=== PATIENT | female | born 1950 | race Caucasian/White ===

== ENCOUNTER 2019-06-29 14:25 | Outpatient (CLI) | payer MEDICARE, SELFPAY ==
--- NOTE | ~2019-06-29 | MR_ITS ---
EXAMINATION: MR brain/brain stem wo/w con EXAM DATE: 06/29/2019 15:20 INDICATION: Meningioma. TECHNIQUE: Magnetic resonance imaging (MRI) of the brain/brain stem obtained without contrast. Sagit delmar T1, axial diffusion, gradient echo (T2*), T1, T2, FLAIR sequences obtained. Patient was then inj ected with 10 cc intravenous Multihance contrast. Axial and coronal postcontrast T1 weighted sequence s obtained. Comparison is made to prior examination from 07/03/2018. FINDINGS: Punctate left cerebellar old infarction. Mild microangiopathy. There are no areas of restri cted diffusion to suggest acute infarction. There is no acute hemorrhage seen on the T2*, a hemoside rin sensitive sequence. No intraparenchymal brain mass. The ventricles are normal in size. There ar e no extra-axial collections. Flow voids are seen in the cerebral arteries on the T2-weighted sequen tati consistent with their expected patency. The orbits are unremarkable. Soft tissue is unremarkabl e. Again there is a mass along the anterior aspect of the falx measuring 1.3 cm, unchanged and cons istent with meningioma. IMPRESSION: 1. Mass along falx consistent with meningioma unchanged. 2. 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 3. Mild microangiopathy. Reviewed, dictated and finalized at location A. ONHOLE TACKER
== END 2019-06-29 14:26 | disposition home or self-care (01) ==
LOC: CHSIMG 14:28
PROVIDERS: PCP Internal Medicine
DX: D32.9 Benign neoplasm of meninges, unspecified (principal)
CPT/HCPCS: 70553; A9577

== ENCOUNTER 2019-10-21 08:17 | Outpatient (CLI) | payer MEDICARE, SELFPAY ==
[2019-10-21 08:45] LABS: Basophils Absolute Auto 0.04 K/mm3 (0.00-0.10); Basophils Percent Auto 0.7 % (0.0-1.0); Eosinophils Absolute Auto 0.06 K/mm3 (0.02-0.50); Eosinophils Percent Auto 1.1 % (1.0-6.0); Lymphocytes Absolute Auto 2.33 K/mm3 (1.10-4.50); Lymphocytes Percent Auto 42.6 % (18.0-42.0); Mean Corpuscular HGB Conc 32.5 g/dL (32.0-36.0); Mean Corpuscular Volume 98.5 fL (78.0-102.0); Monocytes Absolute Auto 0.45 K/mm3 (0.10-0.90); Monocytes Percent Auto 8.2 % (2.0-11.0); Neutrophils Absolute Auto 2.6 K/mm3 (1.7-7.2); Neutrophils Percent Auto 47.4 % (50.0-70.0); Platelet Count Result 252 K/mm3 (150-420); Red Blood Count 4.06 M/mm3 (4.20-5.40); Red Cell Distribution Width 12.6 % (11.6-14.4); White Blood Count 5.5 K/mm3 (4.8-10.8)
[2019-10-21 08:50] LABS: Add Urine Microscopic? YES; Appearance Urine Clear (Clear); Bilirubin Urine Negative (Negative); Blood Urine Negative (Negative); Color Urine Yellow (Yellow); Glucose Urine UA Negative (Negative); Ketones Urine Negative (Negative); Leukocyte Esterase Ur Trace (Negative); Nitrate Urine Negative (Negative); Protein Urine Negative (Negative); Specific Grav Ur 1.015 (1.010-1.020); Urobilinogen Urine 0.2 mg/dL (0.2-1.0)
[2019-10-21 08:57] LABS: RBC Urine 0-2 /hpf (0-2); Squamous Epithelial Cell Urine Few /hpf (Few)
[2019-10-21 08:58] LABS: Bacteria Urine 1+ /hpf; Mucus Urine Few /lpf
[2019-10-21 09:21] LABS: Alanine Aminotransferase 50 U/L (14-59); Albumin Level 3.8 g/dL (3.4-5.0); Alkaline Phosphatase 65 U/L (46-116); Anion Gap 14.6 mmol/L (7-16); Aspartate Amino Transferase 22 U/L (15-37); Bilirubin,Total 0.4 mg/dL (0.00-1.00); Blood Urea Nitrogen 32 mg/dL (7-18); Calcium 9.2 mg/dL (8.5-10.1); Carbon Dioxide 22 mmol/L (21-32); Chloride 108 mmol/L (98-108); Cholesterol 165 mg/dL (0-200); Estimated Glomerular Filt Rate 45; Glucose 92 mg/dL (70-99); HDL Direct 52 mg/dL (40-60); LDL Cholesterol Calculated 77 mg/dL (<130); Osmolality Calculated 296 mOsm/kg (285-295); Potassium 4.6 mmol/L (3.5-5.1); Sodium 140 mmol/L (136-145); Total Protein 7.3 g/dL (6.4-8.2); Triglycerides 181 mg/dL (0-150)
[2019-10-21 09:29] LABS: Hemoglobin A1C 5.7 % (<5.7)
[2019-10-25 19:08] LABS: Vitamin D 25 Hydroxy 26 ng/mL (30-100)
[2019-10-27 19:12] LABS: Vitamin K1 448 pg/mL (130-1500)
== END 2019-10-21 08:18 | disposition home or self-care (01) ==
PROVIDERS: PCP Internal Medicine; Visit Provider Internal Medicine
DX: E78.2 Mixed hyperlipidemia (principal); I10 Essential (primary) hypertension; N20.0 Calculus of kidney; K50.10 Crohn's disease of large intestine without complications; R73.01 Impaired fasting glucose
CPT/HCPCS: 36415; 80053; 80061; 81001; 82306; 83036; 84597; 85025

== ENCOUNTER 2019-11-04 07:49 | Outpatient (CLI) | payer MEDICARE, SELFPAY ==
--- NOTE | ~2019-11-04 | MM_ITS ---
EXAMINATION: MM screening [facility] HISTORY: Screening mammogram TECHNIQUE: Craniocaudal and mediolateral oblique 3-D tomosynthesis images were obtained and synthetic 2-D images were generated. CAD analysis was submitted and interpreted. COMPARISON: 09/02/2018, 04/27/2017, 04/24/2016 bilateral digital screening mammograms BREAST PARENCHYMAL COMPOSITION: There are scattered areas of fibroglandular density. FINDINGS: There is no evidence of suspicious mass, calcification, or architectural distortion to sugg est malignancy in either breast. There has been no suspicious interval change. IMPRESSION: 1. No mammographic evidence of malignancy. 2. Recommend routine screening mammography in one year. BI-RADS Category 1: Negative Reviewed, dictated and finalized at location A.
== END 2019-11-04 07:50 | disposition home or self-care (01) ==
LOC: CHSIMG 07:51
PROVIDERS: PCP Internal Medicine; Visit Provider Internal Medicine
DX: Z12.31 Encounter for screening mammogram for malignant neoplasm of breast (principal)
CPT/HCPCS: 77063; 77067

== ENCOUNTER 2020-04-12 09:37 | Outpatient (CLI) | payer MEDICARE, SELFPAY | END 2020-04-12 09:38 | disposition home or self-care (01) | LOC: CHSIMG 09:38 | PROVIDERS: PCP Internal Medicine; Visit Provider Internal Medicine | DX: I35.1 Nonrheumatic aortic (valve) insufficiency (principal) | CPT/HCPCS: 93306 ==

== ENCOUNTER 2020-05-02 07:51 | Outpatient (CLI) | payer MEDICARE, SELFPAY ==
[2020-05-02 08:04] LABS: Basophils Absolute Auto 0.04 K/mm3 (0.00-0.10); Basophils Percent Auto 0.7 % (0.0-1.0); Eosinophils Absolute Auto 0.11 K/mm3 (0.02-0.50); Hematocrit 37.4 % (35.0-42.0); Hemoglobin 12.2 g/dL (11.7-13.8); Immature Granulocyte Absolute 0.01 K/mm3 (0.00-0.00); Immature Granulocyte Percent A 0.2 % (0.0-0.0); Lymphocytes Absolute Auto 2.51 K/mm3 (1.10-4.50); Lymphocytes Percent Auto 46.7 % (18.0-42.0); Mean Corpuscular HGB Conc 32.6 g/dL (32.0-36.0); Mean Corpuscular Hemoglobin 32.4 pg (27.0-31.0); Mean Corpuscular Volume 99.2 fL (78.0-102.0); Mean Platelet Volume 9.7 fl (9.2-11.8); Monocytes Percent Auto 7.4 % (2.0-11.0); Neutrophils Absolute Auto 2.3 K/mm3 (1.7-7.2); Platelet Count Result 254 K/mm3 (150-420); Red Blood Count 3.77 M/mm3 (4.20-5.40); Red Cell Distribution Width 12.5 % (11.6-14.4); White Blood Count 5.4 K/mm3 (4.8-10.8)
[2020-05-02 08:06] LABS: Add Urine Microscopic? YES; Appearance Urine Clear (Clear); Bilirubin Urine Negative (Negative); Blood Urine Negative (Negative); Color Urine Yellow (Yellow); Glucose Urine UA Negative (Negative); Ketones Urine Negative (Negative); Leukocyte Esterase Ur 2+ (Negative); Nitrate Urine Negative (Negative); Protein Urine Negative (Negative); Urobilinogen Urine 0.2 mg/dL (0.2-1.0)
[2020-05-02 08:10] LABS: Bacteria Urine Trace /hpf; RBC Urine 0-2 /hpf (0-2); Squamous Epithelial Cell Urine Moderate /hpf (Few)
[2020-05-02 09:13] LABS: Alanine Aminotransferase 36 U/L (14-59); Alkaline Phosphatase 58 U/L (46-116); Anion Gap 7 mmol/L (8-16); Aspartate Amino Transferase 17 U/L (15-37); Bilirubin,Total 0.5 mg/dL (0.00-1.00); Blood Urea Nitrogen 25 mg/dL (7-18); Calcium 9.2 mg/dL (8.5-10.1); Carbon Dioxide 26 mmol/L (21-32); Chloride 106 mmol/L (98-108); Cholesterol 183 mg/dL (0-200); Creatine Kinase 65 U/L (26-192); Estimated Glomerular Filt Rate 50; Glucose 94 mg/dL (70-99); HDL Direct 54 mg/dL (40-60); LDL Cholesterol Calculated 101 mg/dL (<130); Osmolality Calculated 292 mOsm/kg (285-295); Potassium 4.5 mmol/L (3.5-5.1); Sodium 139 mmol/L (136-145); Total Protein 7.6 g/dL (6.4-8.2); Triglycerides 142 mg/dL (0-150)
[2020-05-09 11:56] LABS: Vitamin D 25 Hydroxy 32 ng/mL (30-100)
== END 2020-05-02 07:52 | disposition home or self-care (01) ==
LOC: CHSLAB 07:54
PROVIDERS: PCP Internal Medicine; Visit Provider Internal Medicine
DX: R73.01 Impaired fasting glucose (principal); I10 Essential (primary) hypertension; E78.2 Mixed hyperlipidemia; M81.0 Age-related osteoporosis without current pathological fracture; I35.1 Nonrheumatic aortic (valve) insufficiency
CPT/HCPCS: 36415; 80053; 80061; 81001; 82306; 82550; 85025

== ENCOUNTER 2020-05-18 15:40 | Outpatient (CLI) | payer MEDICARE, SELFPAY ==
[2020-05-18 16:53] LABS: Erythrocyte Sedimentation Rate 25 mm/hr (0-20)
[2020-05-18 17:17] LABS: CRP < 0.5 mg/dL (0.0-0.9); Free T3 2.84 pg/mL (2.18-3.98); Free T4 Free Thyroxine 1.04 ng/dL (0.76-1.46); Thyroid Stimulating Hormone 0.87 uIU/mL (0.36-3.74)
== END 2020-05-18 15:41 | disposition home or self-care (01) ==
LOC: CHSLAB 15:42
PROVIDERS: PCP Internal Medicine; Visit Provider Internal Medicine
DX: R53.83 Other fatigue (principal); R42 Dizziness and giddiness
CPT/HCPCS: 36415; 84439; 84443; 84481; 85652; 86038; 86039; 86140

== ENCOUNTER 2020-05-24 10:22 | Outpatient (CLI) | payer MEDICARE, SELFPAY ==
--- NOTE | 2020-06-18 16:12 | WPDHOLTEREM ---
Holter/Event Monitor Holter/Event Monitor Date of procedure: 05/24/20 Procedure Type: event monitor Indications: Palpitations Conclusion: 1. 24 days event monitor between 05/24/20 to 06/18/20. There are 25 available transmissions for analysis. 2. Underlying rhythm is sinus rhythm. HR range 50-120 bpm; average HR 65 bpm. 3. There are occasional premature supraventricular complexes with total burden of <1%. No supraventricular tachycardia. 4. There are occasional premature ventricular complexes with total burden of <1%. No ventricular tachycardia. 5. No significant pauses greater than 2 seconds. 6. Patient reports 6 episodes of symptoms of dizziness, lightheadedness, and symptoms other than listed which demonstrate sinus rhythm, HR range 64-74 bpm.
== END 2020-05-24 10:23 | disposition home or self-care (01) ==
LOC: CHSCARD 10:24
PROVIDERS: PCP Internal Medicine; Visit Provider Internal Medicine
DX: R00.2 Palpitations (principal); R42 Dizziness and giddiness
CPT/HCPCS: 99199

== ENCOUNTER 2020-06-20 08:14 | Outpatient (CLI) | payer MEDICARE, SELFPAY ==
[2020-06-20 09:07] LABS: Estimated Glomerular Filt Rate 50
== END 2020-06-20 08:15 | disposition home or self-care (01) ==
LOC: CHSLAB 08:17
PROVIDERS: PCP Internal Medicine
DX: D32.9 Benign neoplasm of meninges, unspecified (principal)
CPT/HCPCS: 99199

== ENCOUNTER 2020-06-23 06:40 | Outpatient (CLI) | payer MEDICARE, SELFPAY ==
--- NOTE | ~2020-06-23 | MR_ITS ---
EXAMINATION: MR brain/brain stem wo/w con DATE: 06/23/2020 07:58 INDICATION: Meningioma TECHNIQUE: Magnetic resonance imaging (MRI) of the brain and brainstem was performed without and with 10 mL Multihance intravenous contrast. Sequences included sagittal and axial T1-weighted SE, axial d iffusion-weighted FS SE, axial T2*-weighted GRE, axial T2-weighted FLAIR, and axial T2-weighted FSE. Postcontrast axial and coronal T1-weighted SE was obtained. Apparent diffusion coefficient (ADC) maps were created. COMPARISON: Brain MR dated 06/29/2019 and 07/03/2018 FINDINGS: No interval change in a 14 x 12 x 10 mm enhancing dural based mass along the anterior falx consistent with meningioma. Small old infarct in the left cerebellar hemisphere. There are no areas of restrict ed diffusion to suggest acute infarction. No intracranial hemorrhage or abnormal intra-axial mass les ion. There are scattered areas of nonspecific increased T2-weighted signal intensity in the cerebral white matter, predominantly involving the deep and periventricular white matter. There are no intrapa renchymal signal abnormalities seen on the other pulse sequences. The ventricles are symmetric and no rmal in size. There are no abnormal extra-axial fluid collections. Flow voids are seen in the cerebra l arteries on the T2-weighted sequences consistent with their expected patency. Changes of bilateral intraocular lens replacement. Mild mucosal thickening the bilateral ethmoid sinuses. Visualized orbit s and soft tissues are unremarkable. Aside from the meningioma there are no other abnormally enhancin g lesions. IMPRESSION: 1. Unchanged 1.4 cm meningioma along the anterior falx. 2. 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 3. Mild scattered nonspecific white matter T2 hyperintensity consistent with chronic small vessel isc hemic disease. Reviewed, dictated and finalized at location A. 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 Unchanged 1.4 cm meningioma along the anterior falx. 2. 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 3. Mild scattered nonspecific white matter T2 hyperintensity consistent with ch ronic small vessel ischemic disease.
== END 2020-06-23 06:41 | disposition home or self-care (01) ==
LOC: CHSIMG 06:42
PROVIDERS: PCP Internal Medicine
DX: D32.9 Benign neoplasm of meninges, unspecified (principal)
CPT/HCPCS: 70553; A9577

== ENCOUNTER 2020-11-01 08:31 | Outpatient (CLI) | payer MEDICARE, SELFPAY ==
[2020-11-01 08:41] LABS: Basophils Absolute Auto 0.05 K/mm3 (0.00-0.10); Basophils Percent Auto 0.9 % (0.0-1.0); Eosinophils Absolute Auto 0.13 K/mm3 (0.02-0.50); Eosinophils Percent Auto 2.4 % (1.0-6.0); Hematocrit 37.1 % (35.0-42.0); Hemoglobin 12.2 g/dL (11.7-13.8); Immature Granulocyte Absolute 0.01 K/mm3 (0.00-0.00); Immature Granulocyte Percent A 0.2 % (0.0-0.0); Lymphocytes Absolute Auto 2.69 K/mm3 (1.10-4.50); Lymphocytes Percent Auto 48.6 % (18.0-42.0); Mean Corpuscular HGB Conc 32.9 g/dL (32.0-36.0); Mean Corpuscular Hemoglobin 32.1 pg (27.0-31.0); Mean Corpuscular Volume 97.6 fL (78.0-102.0); Mean Platelet Volume 9.7 fl (9.2-11.8); Monocytes Absolute Auto 0.44 K/mm3 (0.10-0.90); Neutrophils Absolute Auto 2.2 K/mm3 (1.7-7.2); Neutrophils Percent Auto 39.9 % (50.0-70.0); Platelet Count Result 259 K/mm3 (150-420); Red Cell Distribution Width 12.6 % (11.6-14.4); White Blood Count 5.5 K/mm3 (4.8-10.8)
[2020-11-01 08:46] LABS: Add Urine Microscopic? YES; Appearance Urine Clear (Clear); Bilirubin Urine Negative (Negative); Blood Urine Negative (Negative); Color Urine Light Yellow (Yellow); Glucose Urine UA Negative (Negative); Ketones Urine Negative (Negative); Leukocyte Esterase Ur 3+ (Negative); Nitrate Urine Negative (Negative); Protein Urine Negative (Negative); Specific Grav Ur 1.025 (1.010-1.020); Urobilinogen Urine 0.2 mg/dL (0.2-1.0); pH Urine 5.5 (5.0-8.0)
[2020-11-01 08:50] LABS: Bacteria Urine 1+ /hpf; RBC Urine None seen /hpf (0-2); Squamous Epithelial Cell Urine Few /hpf (Few)
[2020-11-01 08:58] LABS: Creatinine Urine 111.65 mg/dL (40-278); MALB Creatinine Ratio 11.6 mg/g (0-30); Microalbumin Urine Random < 13.0 mg/L
[2020-11-01 09:22] LABS: Hemoglobin A1C 5.6 % (<5.7)
[2020-11-01 09:29] LABS: Alanine Aminotransferase 45 U/L (14-59); Albumin Level 3.8 g/dL (3.4-5.0); Alkaline Phosphatase 78 U/L (46-116); Anion Gap 12 mmol/L (8-16); Aspartate Amino Transferase 15 U/L (15-37); Bilirubin,Total 0.7 mg/dL (0.00-1.00); Blood Urea Nitrogen 32 mg/dL (7-18); Calcium 9.5 mg/dL (8.5-10.1); Carbon Dioxide 21 mmol/L (21-32); Chloride 106 mmol/L (98-108); Cholesterol 177 mg/dL (0-200); Estimated Glomerular Filt Rate 41; Free T3 2.68 pg/mL (2.18-3.98); Glucose 94 mg/dL (70-99); HDL Direct 51 mg/dL (40-60); LDL Cholesterol Calculated 87 mg/dL (<130); Osmolality Calculated 294 mOsm/kg (285-295); Potassium 4.7 mmol/L (3.5-5.1); Sodium 139 mmol/L (136-145); Total Protein 7.3 g/dL (6.4-8.2); Triglycerides 196 mg/dL (0-150)
[2020-11-05 02:22] LABS: Vitamin D 25 Hydroxy 26 ng/mL (30-100)
== END 2020-11-01 08:32 | disposition home or self-care (01) ==
LOC: CHSLAB 08:33
PROVIDERS: PCP Internal Medicine; Visit Provider Internal Medicine
DX: E78.2 Mixed hyperlipidemia (principal); I10 Essential (primary) hypertension; R73.01 Impaired fasting glucose; M81.0 Age-related osteoporosis without current pathological fracture; N18.31 Chronic kidney disease, stage 3a; K50.10 Crohn's disease of large intestine without complications
CPT/HCPCS: 36415; 80053; 80061; 81001; 82043; 82306; 83036; 84439; 84443; 84481; 85025

== ENCOUNTER 2020-11-06 08:09 | Outpatient (CLI) | payer MEDICARE, SELFPAY ==
--- NOTE | ~2020-11-06 | MM_ITS ---
EXAMINATION: MM screening [facility] HISTORY: Screening TECHNIQUE: Craniocaudal and mediolateral oblique 3-D tomosynthesis images were obtained and synthetic 2-D images were generated. CAD analysis was submitted and interpreted. COMPARISON: Comparison to multiple prior studies sequentially, with oldest reviewed study dated 05/2013. BREAST PARENCHYMAL COMPOSITION: There are scattered areas of fibroglandular density. FINDINGS: There is no evidence of suspicious mass, calcification, or architectural distortion to sugg est malignancy in either breast. There has been no suspicious interval change. IMPRESSION: 1. No mammographic evidence of malignancy. 2. Recommend routine screening mammography in one year. BI-RADS Category 1: Negative Reviewed, dictated and finalized at location A.
== END 2020-11-06 08:10 | disposition home or self-care (01) ==
LOC: CHSIMG 08:10
PROVIDERS: PCP Internal Medicine; Visit Provider Internal Medicine
DX: Z12.31 Encounter for screening mammogram for malignant neoplasm of breast (principal)
CPT/HCPCS: 77063; 77067

== ENCOUNTER 2020-12-04 08:27 | Outpatient (CLI) | payer MEDICARE, SELFPAY ==
[2020-12-04 09:37] LABS: Anion Gap 13 mmol/L (8-16); Blood Urea Nitrogen 21 mg/dL (7-18); Calcium 9.5 mg/dL (8.5-10.1); Carbon Dioxide 22 mmol/L (21-32); Chloride 109 mmol/L (98-108); Estimated Glomerular Filt Rate 48; Glucose 91 mg/dL (70-99); Osmolality Calculated 301 mOsm/kg (285-295); Sodium 144 mmol/L (136-145)
== END 2020-12-04 08:28 | disposition home or self-care (01) ==
LOC: CHSLAB 08:29
PROVIDERS: PCP Internal Medicine; Visit Provider Internal Medicine
DX: E86.0 Dehydration (principal)
CPT/HCPCS: 36415; 80048

== ENCOUNTER 2020-12-06 10:39 | Outpatient (CLI) | payer MEDICARE, SELFPAY ==
--- NOTE | ~2020-12-06 | DEXA_ITS ---
Bone Density Report Name: Jayla Manrique Age: 70 Sex: Female Ethnicity: White Date of : 1950 Indication: osteopenia; monitoring treatment; hysterectomy; Referring Provider: Ezekiel Begum Study: Bone densitometry was performed. Exam Date: December 06, 2020 Accession number: [id number] Bone Density: Region BMD T-score Z-score Classification AP Spine(L1, L2, L3) 0.830 -1.7 0.3 Osteopenia Femoral Neck (Left) 0.778 -0.6 1.1 Normal Total Hip (Left) 0.827 -0.9 0.5 Normal Femoral Neck (Right) 0.530 -2.9 -1.1 Osteoporosis Total Hip (Right) 0.717 -1.8 -0.4 Osteopenia Femoral Neck Mean 0.654 -1.8 0.0 Osteopenia Total Hip Mean 0.772 -1.4 0.1 Osteopenia World Health Organization criteria for BMD impression classify patients as: Normal (T-score at or above -1.0), Osteopenia (T-score between -1.0 and -2.5), or Osteoporosis (T-score at or below -2.5). 10-year Fracture Risk: FRAX not reported because: Some T-score for Spine Total or Hip Total or Femoral Neck at or below -2.5 Treated for osteoporosis Previous Exams: Region Exam Age BMD T-score BMD Change BMD Change Date g/cm2 vs Baseline vs Previous AP Spine (L1-L3) 12/06/2020 70 0.830 -1.7 -0.086 (-9.3%) 0.029 (3.6%)# 04/24/2016 65 0.801 -2.0 -0.115 (-12.5% -0.045 (-5.4%) 03/17/2014 63 0.846 -1.6 -0.069 (-7.6%) 0.015 (1.8%) 02/25/2010 59 0.831 -1.7 -0.085 (-9.3%) -0.085 (-9.3%) 01/03/2008 57 0.915 -0.9 Total Hip(Left) 12/06/2020 70 0.827 -0.9 -0.026 (-3.1%) 0.054 (7.0%)# 04/24/2016 65 0.773 -1.4 -0.080 (-9.4%) -0.033 (-4.1%) 03/17/2014 63 0.806 -1.1 -0.047 (-5.5%) -0.069 (-7.9%) 02/25/2010 59 0.874 -0.6 0.022 (2.5%) 0.022 (2.5%) 01/03/2008 57 0.853 -0.7 Total Hip(Right) 12/06/2020 70 0.717 -1.8 -0.068 (-8.7%) 0.011 (1.5%)# 03/17/2014 63 0.706 -1.9 -0.079 (-10.1% -0.072 (-9.3%) 02/25/2010 59 0.778 -1.3 -0.007 (-0.9%) -0.007 (-0.9%) 01/03/2008 57 0.785 -1.3 *Denotes significance at 95% confidence level, LSC for AP Spine = 0.022 g/cm2, LSC for Total Hip = 0.027 g/cm2 # Denotes dissimilar scan types or analysis methods Clinical Information Provided by Patient: Is being treated for osteoporosis Has the following medical conditions: Hysterectomy Patient maximum height was 61 Menopause Age: 51 No regular weight bearing exercise Does not regularly consume dairy products Drinks caffeinated beverages Onset of menses at age 13 Number of children 2 --
== END 2020-12-06 10:40 | disposition home or self-care (01) ==
LOC: CHSIMG 10:39
PROVIDERS: PCP Internal Medicine; Visit Provider Internal Medicine
DX: M81.0 Age-related osteoporosis without current pathological fracture (principal)
CPT/HCPCS: 77080

== ENCOUNTER 2021-01-04 08:17 | Outpatient (CLI) | payer MEDICARE, SELFPAY ==
[2021-01-04 10:42] LABS: Anion Gap 12 mmol/L (8-16); Blood Urea Nitrogen 19 mg/dL (7-18); Calcium 9.3 mg/dL (8.5-10.1); Carbon Dioxide 22 mmol/L (21-32); Chloride 109 mmol/L (98-108); Estimated Glomerular Filt Rate 47; Glucose 90 mg/dL (70-99); Osmolality Calculated 298 mOsm/kg (285-295); Potassium 4.8 mmol/L (3.5-5.1); Sodium 143 mmol/L (136-145)
== END 2021-01-04 08:18 | disposition home or self-care (01) ==
LOC: CHSLAB 08:19
PROVIDERS: PCP Internal Medicine; Visit Provider Internal Medicine
DX: R79.89 Other specified abnormal findings of blood chemistry (principal)
CPT/HCPCS: 36415; 80048

== ENCOUNTER 2021-04-10 07:53 | Outpatient (CLI) | payer MEDICARE, SELFPAY ==
[2021-04-10 08:46] LABS: Anion Gap 8 mmol/L (8-16); Blood Urea Nitrogen 21 mg/dL (7-18); Calcium 9.2 mg/dL (8.5-10.1); Carbon Dioxide 25 mmol/L (21-32); Chloride 109 mmol/L (98-108); Estimated Glomerular Filt Rate 50; Glucose 92 mg/dL (70-99); Osmolality Calculated 297 mOsm/kg (285-295); Potassium 4.7 mmol/L (3.5-5.1); Sodium 142 mmol/L (136-145)
== END 2021-04-10 07:54 | disposition home or self-care (01) ==
LOC: CHSLAB 07:55
PROVIDERS: PCP Internal Medicine; Visit Provider Internal Medicine
DX: I10 Essential (primary) hypertension (principal)
CPT/HCPCS: 36415; 80048

== ENCOUNTER 2021-06-06 08:01 | Outpatient (CLI) | payer MEDICARE, SELFPAY ==
[2021-06-06 08:31] LABS: Basophils Absolute Auto 0.04 K/mm3 (0.00-0.10); Basophils Percent Auto 0.7 % (0.0-1.0); Eosinophils Absolute Auto 0.13 K/mm3 (0.02-0.50); Eosinophils Percent Auto 2.2 % (1.0-6.0); Hematocrit 39.6 % (35.0-42.0); Hemoglobin 12.7 g/dL (11.7-13.8); Immature Granulocyte Absolute 0.02 K/mm3 (0.00-0.00); Immature Granulocyte Percent A 0.3 % (0.0-0.0); Lymphocytes Absolute Auto 2.37 K/mm3 (1.10-4.50); Lymphocytes Percent Auto 40.8 % (18.0-42.0); Mean Corpuscular HGB Conc 32.1 g/dL (32.0-36.0); Mean Corpuscular Hemoglobin 32.1 pg (27.0-31.0); Mean Platelet Volume 9.9 fl (9.2-11.8); Monocytes Absolute Auto 0.47 K/mm3 (0.10-0.90); Monocytes Percent Auto 8.1 % (2.0-11.0); Neutrophils Absolute Auto 2.8 K/mm3 (1.7-7.2); Neutrophils Percent Auto 47.9 % (50.0-70.0); Platelet Count Result 254 K/mm3 (150-420); Red Blood Count 3.96 M/mm3 (4.20-5.40); Red Cell Distribution Width 12.5 % (11.6-14.4); White Blood Count 5.8 K/mm3 (4.8-10.8)
[2021-06-06 08:46] LABS: Hemoglobin A1C 5.8 % (<5.7)
[2021-06-06 08:50] LABS: Add Urine Microscopic? YES; Appearance Urine Clear (Clear); Bilirubin Urine Negative (Negative); Blood Urine Negative (Negative); Color Urine Light Yellow (Yellow); Glucose Urine UA Negative (Negative); Ketones Urine Negative (Negative); Leukocyte Esterase Ur Trace (Negative); Nitrate Urine Negative (Negative); Protein Urine Negative (Negative); Specific Grav Ur 1.025 (1.010-1.020); Urobilinogen Urine 0.2 mg/dL (0.2-1.0); pH Urine 5.5 (5.0-8.0)
[2021-06-06 09:16] LABS: Bacteria Urine Trace /hpf; RBC Urine None seen /hpf (0-2); Squamous Epithelial Cell Urine Few /hpf (Few); WBC Urine 0-3 /hpf (0-3)
[2021-06-06 10:08] LABS: Alanine Aminotransferase 35 U/L (14-59); Albumin Level 3.8 g/dL (3.4-5.0); Alkaline Phosphatase 83 U/L (46-116); Anion Gap 7 mmol/L (8-16); Aspartate Amino Transferase 24 U/L (15-37); Bilirubin,Total 0.4 mg/dL (0.00-1.00); Blood Urea Nitrogen 25 mg/dL (7-18); Calcium 9.5 mg/dL (8.5-10.1); Carbon Dioxide 27 mmol/L (21-32); Chloride 105 mmol/L (98-108); Cholesterol 189 mg/dL (0-200); Estimated Glomerular Filt Rate 48; Free T4 Free Thyroxine 0.98 ng/dL (0.76-1.46); Glucose 86 mg/dL (70-99); HDL Direct 60 mg/dL (40-60); LDL Cholesterol Calculated 97 mg/dL (<130); Osmolality Calculated 291 mOsm/kg (285-295); Sodium 139 mmol/L (136-145); Thyroid Stimulating Hormone 1.17 uIU/mL (0.36-3.74); Total Protein 7.4 g/dL (6.4-8.2); Triglycerides 160 mg/dL (0-150); Vitamin B12 392 pg/mL (193-986)
[2021-06-06 10:14] LABS: CRP < 0.2 mg/dL (0.0-0.9)
[2021-06-06 10:52] LABS: Erythrocyte Sedimentation Rate 22 mm/hr (0-20)
[2021-06-10 04:54] LABS: Vitamin D 25 Hydroxy 30 ng/mL (30-100)
[2021-06-10 11:16] LABS: Red Blood Cell Folate 501 ng/mL RBC (>280)
== END 2021-06-06 08:02 | disposition home or self-care (01) ==
LOC: CHSLAB 08:05
PROVIDERS: PCP Internal Medicine; Visit Provider Internal Medicine
DX: K50.10 Crohn's disease of large intestine without complications (principal); I10 Essential (primary) hypertension; M81.0 Age-related osteoporosis without current pathological fracture; R73.01 Impaired fasting glucose; R53.82 Chronic fatigue, unspecified
CPT/HCPCS: 36415; 80053; 80061; 81001; 82306; 82607; 82747; 83036; 84439; 84443; 85025; 85652; 86140

== ENCOUNTER 2021-06-18 07:11 | Outpatient (CLI) | payer MEDICARE, SELFPAY ==
--- NOTE | ~2021-06-18 | MR_ITS ---
EXAMINATION: MR brain/brain stem wo/w con EXAM DATE: 06/18/2021 09:28 INDICATION: Falx Meningioma. TECHNIQUE: Magnetic resonance imaging (MRI) of the brain/brain stem obtained without contrast. Sagit delmar T1, axial diffusion, gradient echo (T2*), T1, T2, FLAIR sequences obtained. Patient was then inj ected with 13 cc intravenous Multihance contrast. Axial and coronal postcontrast T1 weighted sequence s obtained. Comparison is made to prior examination from 11/25/2017. FINDINGS: Again there is enhancing extra-axial mass centered along the right side of the falx, measur ing up to 1.4 cm, appears essentially unchanged compared to 2018 MRI, demonstrating nearly [address] ability. Appearance is consistent with meningioma. Punctate old left cerebral or infarction unchanged. Mild scattered T2/flair signal hyperintensities i n the white matter likely mild microangiopathy. There are no areas of restricted diffusion to suggest acute infarction. There is no acute hemorrhage seen on the T2*, a hemosiderin sensitive sequence. No intraparenchymal brain mass. The ventricles are normal in size. There are no extra-axial collecti ons. Flow voids are seen in the cerebral arteries on the T2-weighted sequences consistent with their expected patency. Patient has had bilateral ocular lens surgery. Soft tissue is unremarkable. IMPRESSION: 1. Stable small frontal meningioma. 2. Mild microangiopathy. 3. 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 Reviewed, dictated and finalized at location B. INATION SCORER
== END 2021-06-18 07:12 | disposition home or self-care (01) ==
LOC: CHSIMG 07:14
PROVIDERS: PCP Internal Medicine
DX: D32.9 Benign neoplasm of meninges, unspecified (principal)
CPT/HCPCS: 70553; A9577

== ENCOUNTER 2021-08-05 07:47 | Outpatient (CLI) | payer MEDICARE, SELFPAY ==
[2021-08-05 09:10] LABS: Alanine Aminotransferase 35 U/L (14-59); Albumin Level 3.7 g/dL (3.4-5.0); Alkaline Phosphatase 90 U/L (46-116); Anion Gap 10 mmol/L (8-16); Aspartate Amino Transferase 16 U/L (15-37); Bilirubin,Total 0.4 mg/dL (0.00-1.00); Blood Urea Nitrogen 22 mg/dL (7-18); Carbon Dioxide 23 mmol/L (21-32); Chloride 109 mmol/L (98-108); Estimated Glomerular Filt Rate 50; Glucose 101 mg/dL (70-99); Osmolality Calculated 297 mOsm/kg (285-295); Potassium 3.9 mmol/L (3.5-5.1); Sodium 142 mmol/L (136-145); Total Protein 7.1 g/dL (6.4-8.2); Vitamin B12 1243 pg/mL (193-986)
== END 2021-08-05 07:48 | disposition home or self-care (01) ==
LOC: CHSLAB 07:48
PROVIDERS: PCP Internal Medicine; Visit Provider Internal Medicine
DX: E86.0 Dehydration (principal); E55.9 Vitamin D deficiency, unspecified
CPT/HCPCS: 36415; 80048; 80053; 82607

== ENCOUNTER 2021-12-02 08:15 | Outpatient (CLI) | payer MEDICARE, SELFPAY ==
--- NOTE | ~2021-12-02 | MM_ITS ---
EXAMINATION: MM screening [facility] HISTORY: Screening mammogram TECHNIQUE: Craniocaudal and mediolateral oblique 3-D tomosynthesis images were obtained and synthetic 2-D images were generated. CAD analysis was submitted and interpreted. COMPARISON: 11/06/2020, 11/04/2019, 09/02/2018 bilateral screening mammogram examinations BREAST PARENCHYMAL COMPOSITION: There are scattered areas of fibroglandular density. FINDINGS: There is no evidence of suspicious mass, calcification, or architectural distortion to sugg est malignancy in either breast. There has been no suspicious interval change. IMPRESSION: 1. No mammographic evidence of malignancy. 2. Recommend routine screening mammography in one year. BI-RADS Category 1: Negative Reviewed, dictated and finalized at location A.
== END 2021-12-02 08:16 | disposition home or self-care (01) ==
LOC: CHSIMG 08:17
PROVIDERS: PCP Internal Medicine; Visit Provider Internal Medicine
DX: Z12.31 Encounter for screening mammogram for malignant neoplasm of breast (principal)
CPT/HCPCS: 77063; 77067

== ENCOUNTER 2021-12-04 08:27 | Outpatient (CLI) | payer MEDICARE, SELFPAY ==
[2021-12-04 08:55] LABS: Basophils Absolute Auto 0.07 K/mm3 (0.00-0.10); Basophils Percent Auto 1.2 % (0.0-1.0); Eosinophils Absolute Auto 0.11 K/mm3 (0.02-0.50); Eosinophils Percent Auto 1.9 % (1.0-6.0); Hematocrit 36.9 % (35.0-42.0); Hemoglobin 11.6 g/dL (11.7-13.8); Immature Granulocyte Absolute 0.01 K/mm3 (0.00-0.00); Immature Granulocyte Percent A 0.2 % (0.0-0.0); Lymphocytes Absolute Auto 2.22 K/mm3 (1.10-4.50); Lymphocytes Percent Auto 39.1 % (18.0-42.0); Mean Corpuscular HGB Conc 31.4 g/dL (32.0-36.0); Mean Corpuscular Hemoglobin 31.5 pg (27.0-31.0); Mean Corpuscular Volume 100.3 fL (78.0-102.0); Mean Platelet Volume 10.3 fl (9.2-11.8); Monocytes Absolute Auto 0.45 K/mm3 (0.10-0.90); Monocytes Percent Auto 7.9 % (2.0-11.0); Neutrophils Absolute Auto 2.8 K/mm3 (1.7-7.2); Neutrophils Percent Auto 49.7 % (50.0-70.0); Platelet Count Result 244 K/mm3 (150-420); Red Blood Count 3.68 M/mm3 (4.20-5.40); Red Cell Distribution Width 12.3 % (11.6-14.4); White Blood Count 5.7 K/mm3 (4.8-10.8)
[2021-12-04 09:09] LABS: Add Urine Microscopic? YES; Appearance Urine Clear (Clear); Bilirubin Urine Negative (Negative); Blood Urine Negative (Negative); Color Urine Light Yellow (Yellow); Glucose Urine UA Negative (Negative); Ketones Urine Negative (Negative); Leukocyte Esterase Ur 1+ LEU/UL (Negative); Nitrate Urine Negative (Negative); Protein Urine Negative (Negative); Specific Grav Ur 1.015 (1.010-1.020); Urobilinogen Urine 0.2 mg/dL (0.2-1.0); pH Urine 5.5 (5.0-8.0)
[2021-12-04 09:22] LABS: Bacteria Urine Trace /hpf; RBC Urine None seen /hpf (0-2); Squamous Epithelial Cell Urine Few /hpf (Few); WBC Urine 0-3 /hpf (0-3)
[2021-12-04 09:36] LABS: Creatinine Urine 95.16 mg/dL (40-278); MALB Creatinine Ratio 13.6 mg/g (0-30); Microalbumin Urine Random < 13.0 mg/L
[2021-12-04 09:43] LABS: Hemoglobin A1C 5.6 % (<5.7)
[2021-12-04 09:47] LABS: Alanine Aminotransferase 44 U/L (14-59); Albumin Level 3.8 g/dL (3.4-5.0); Alkaline Phosphatase 98 U/L (46-116); Anion Gap 7 mmol/L (8-16); Aspartate Amino Transferase 19 U/L (15-37); Bilirubin,Total 0.5 mg/dL (0.00-1.00); Blood Urea Nitrogen 27 mg/dL (7-18); Calcium 9.2 mg/dL (8.5-10.1); Carbon Dioxide 22 mmol/L (21-32); Chloride 112 mmol/L (98-108); Cholesterol 160 mg/dL (0-200); Creatine Kinase 54 U/L (26-192); Estimated Glomerular Filt Rate 49; Glucose 95 mg/dL (70-99); HDL Direct 55 mg/dL (40-60); LDL Cholesterol Calculated 72 mg/dL (<130); Osmolality Calculated 297 mOsm/kg (285-295); Potassium 4.8 mmol/L (3.5-5.1); Sodium 141 mmol/L (136-145); Total Protein 7.1 g/dL (6.4-8.2); Triglycerides 166 mg/dL (0-150); Vitamin B12 1243 pg/mL (193-986)
[2021-12-07 21:40] LABS: Vitamin D 25 Hydroxy 28 ng/mL (30-100)
== END 2021-12-04 08:28 | disposition home or self-care (01) ==
LOC: CHSLAB 08:28
PROVIDERS: PCP Internal Medicine; Visit Provider Internal Medicine
DX: M81.0 Age-related osteoporosis without current pathological fracture (principal); I10 Essential (primary) hypertension; N39.0 Urinary tract infection, site not specified; R73.01 Impaired fasting glucose; E78.5 Hyperlipidemia, unspecified; E53.8 Deficiency of other specified B group vitamins; R82.90 Unspecified abnormal findings in urine
CPT/HCPCS: 36415; 80053; 80061; 81001; 82043; 82306; 82550; 82607; 83036; 85025; 87086

== ENCOUNTER 2021-12-17 09:33 | Outpatient (CLI) | payer MEDICARE, SELFPAY ==
[2021-12-17 09:48] LABS: Immature Reticulocyte Fraction 13.1 % (2.0-16.52); Reticulocyte Hemoglobin Conten 35.9 pg (28.0-35.0); Reticulocyte Percent 1.57 % (0.50-1.50); Reticulocytes Absolute 0.06 M/mm3 (0.02-0.1)
[2021-12-17 11:41] LABS: Ferritin 181 ng/mL (8-252); Iron 100 ug/dL (50-170); Vitamin B12 1255 pg/mL (193-986)
[2021-12-22 06:32] LABS: Red Blood Cell Folate 472 ng/mL RBC (>280)
[2021-12-24 13:17] LABS: Acetylchol Receptor Binding Ab <0.30 nmol/L
== END 2021-12-17 09:34 | disposition home or self-care (01) ==
LOC: CHSLAB 09:34
PROVIDERS: PCP Internal Medicine; Visit Provider Internal Medicine
DX: D64.9 Anemia, unspecified (principal); H53.2 Diplopia
CPT/HCPCS: 36415; 82607; 82728; 82747; 83519; 83540; 84238; 85046

== ENCOUNTER 2021-12-19 12:14 | Outpatient (CLI) | payer MEDICARE, SELFPAY ==
[2021-12-19 12:41] LABS: Occult Blood Negative (Negative)
[2021-12-19 12:41] LABS: Occult Blood Negative (Negative)
[2021-12-19 12:41] LABS: Occult Blood Negative (Negative)
== END 2021-12-19 12:15 | disposition home or self-care (01) ==
LOC: CHSLAB 12:16
PROVIDERS: PCP Internal Medicine; Visit Provider Internal Medicine
DX: D64.9 Anemia, unspecified (principal); H53.2 Diplopia
CPT/HCPCS: 82272

== ENCOUNTER 2022-01-20 07:58 | Outpatient (CLI) | payer MEDICARE, SELFPAY ==
[2022-01-20 08:08] LABS: Basophils Absolute Auto 0.05 K/mm3 (0.00-0.10); Basophils Percent Auto 0.7 % (0.0-1.0); Eosinophils Absolute Auto 0.14 K/mm3 (0.02-0.50); Hemoglobin 12.6 g/dL (11.7-13.8); Immature Granulocyte Absolute 0.02 K/mm3 (0.00-0.00); Immature Granulocyte Percent A 0.3 % (0.0-0.0); Mean Corpuscular HGB Conc 32.3 g/dL (32.0-36.0); Mean Corpuscular Hemoglobin 31.8 pg (27.0-31.0); Mean Corpuscular Volume 98.5 fL (78.0-102.0); Mean Platelet Volume 9.8 fl (9.2-11.8); Monocytes Absolute Auto 0.48 K/mm3 (0.10-0.90); Monocytes Percent Auto 6.9 % (2.0-11.0); Neutrophils Absolute Auto 3.5 K/mm3 (1.7-7.2); Neutrophils Percent Auto 50.1 % (50.0-70.0); Platelet Count Result 272 K/mm3 (150-420); Red Blood Count 3.96 M/mm3 (4.20-5.40); Red Cell Distribution Width 12.4 % (11.6-14.4)
== END 2022-01-20 07:59 | disposition home or self-care (01) ==
LOC: CHSLAB 08:00
PROVIDERS: PCP Internal Medicine; Visit Provider Internal Medicine
DX: D64.9 Anemia, unspecified (principal)
CPT/HCPCS: 36415; 85025

== ENCOUNTER 2022-01-25 07:52 | Outpatient (CLI) | payer MEDICARE, SELFPAY ==
[2022-01-25 08:40] LABS: Free T3 2.51 pg/mL (2.18-3.98); Free T4 Free Thyroxine 0.97 ng/dL (0.76-1.46); Thyroid Stimulating Hormone 1.73 uIU/mL (0.36-3.74)
== END 2022-01-25 07:53 | disposition home or self-care (01) ==
LOC: CHSLAB 07:53
PROVIDERS: PCP Internal Medicine; Visit Provider Internal Medicine
DX: R53.83 Other fatigue (principal)
CPT/HCPCS: 36415; 84439; 84443; 84481

== ENCOUNTER 2022-04-14 14:19 | Outpatient (CLI) | payer MEDICARE, SELFPAY ==
--- NOTE | 2022-04-14 15:07 | ECHO_ITS ---
Patient Info Name: Jayla Manrique Age: 71 years : 1950 Gender: Female Ht: 61 in Wt: 130 lbs BSA: 1.60 m2 HR: 63 bpm BP: 120 / 55 mmHg Technical Quality: Good Exam Date: 04/14/2022 3:20 PM Exam Location: [facility] Patient Status: Outpatient Admit Date: 04/14/2022 Staff Ordering Physician: Ezekiel Begum MD Heel Cementer Machine: Dale Reed RDCS, RT Attending Provider: Ezekiel Begum MD Referring Physician: Kel ARNOLD; Exam Type: CA echo doppler color flow Study Info Indications I35.1 - Nonrheumatic aortic (valve) insufficiency Complete two-dimensional, color flow and Doppler transthoracic echocardiogram is performed. Strain analysis performed. History/Risk Factors Hypertension: Yes Dyslipidemia: No Congenital Heart Disease (CHD): No Peripheral Arterial Disease (PAD): No Myocardial Infarction (ME): No Chronic Lung Disease: No Obesity: No Renal Disease: No Coronary Artery Disease (CAD) No Congestive Heart Failure (CHF): No Cardiomyopathy/LV Systolic Dysfunction: No Diabetes Mellitus: No COPD: No Tobacco Use: Never Cerebrovascular Disease: No Family History: Diabetes Mellitus, Coronary Artery Disease Deep Vein Thrombosis (DVT): None Dialysis: None Frailty Scale (CSHA): 1: Very Fit Cardiac Arrest: No Summary 1. Complete two-dimensional, color flow and Doppler transthoracic echocardiogram is performed. 2. Left ventricular chamber dimension is normal. 3. Left ventricular systolic function is normal, estimated at 60-65%. 4. There is mildly increased left ventricular wall thickness. 5. The left ventricular diastolic function is grade I diastolic dysfunction. 6. E/e' 10 is mildly elevated. 7. Global longitudinal strain is normal at -20.4%. 8. There is mild aortic valve sclerosis. 9. There is mild aortic valve regurgitation. 10. There is mild mitral valve regurgitation. 11. There is mild tricuspid valve regurgitation. 12. No pulmonary hypertension, estimated pulmonary arterial systolic pressure is 35 mmHg. 13. There is mild pulmonic regurgitation. Left Ventricle E/e' 10 is mildly elevated. Global longitudinal strain is normal at -20.4%. Left ventricular chamber dimension is normal. Left ventricular systolic function is normal, estimated at 60-65%. There is mildly increased left ventricular wall thickness. The left ventricular diastolic function is grade I diastolic dysfunction. Right Ventricle Right ventricular systolic function is normal and with normal TAPSE 2.2 cm. Right ventricular chamber dimension is normal. Left Atria Left atrial chamber dimension is normal. Right Atria Right atrial chamber dimension is normal. Aortic Valve The aortic valve is trileaflet. There is mild aortic valve sclerosis. There is no aortic valve stenosis. There is mild aortic valve regurgitation. Pulmonic Valve There is mild pulmonic regurgitation. Mitral Valve There is no mitral valve stenosis. There is mild mitral valve regurgitation. Tricuspid Valve There is mild tricuspid valve regurgitation. No pulmonary hypertension, estimated pulmonary arterial systolic pressure is 35 mmHg. Pericardium/Pleural There is no pericardial effusion. Inferior Vena Cava Normal inferior vena cava with >50% collapse upon inspiration consistent with normal right atrial pressure, 5 mmHg. Aorta The aortic root size at the sinus of Valsalva is normal.
== END 2022-04-14 14:20 | disposition home or self-care (01) ==
LOC: CHSIMG 14:20
PROVIDERS: PCP Internal Medicine; Visit Provider Internal Medicine
DX: I35.1 Nonrheumatic aortic (valve) insufficiency (principal)
CPT/HCPCS: 93306

== ENCOUNTER 2022-06-06 14:52 | Emergency (ER) | payer MEDICARE, SELFPAY ==
--- NOTE | ~2022-06-06 | CT_ITS ---
EXAMINATION: CT abdomen pelvis w con DATE: 06/06/2022 16:32 INDICATION: Epigastric abdominal pain. TECHNIQUE: Computed tomography (CT) of the abdomen and pelvis was performed with 100 mL Omnipaque 350 intravenous contrast. Automated exposure control and iterative reconstruction technique were employe d. The dose-length product was 332.61 mGy-cm. COMPARISON: CT abdomen and pelvis 10/22/2010 FINDINGS: The visualized portions of the lung bases demonstrate mild atelectasis. No pleural effusion . There is a left posterior diaphragmatic hernias containing fat. The heart size is normal. No perica rdial effusion. There is a small sliding hiatal hernia. The liver is normal. There are changes of cho lecystectomy. The spleen, pancreas, and adrenal glands are normal. There is cortical thinning of the kidneys. There is a vascular calcification at the hilum of left kidney. There is diverticulosis of th e colon without evidence of diverticulitis. There is liquid stool in the colon suggesting diarrhea. T he appendix is normal. The small bowel predominantly fluid-filled. There is a mildly dilated loop of small bowel in left abdomen. There are no pathologically enlarged lymph nodes. There is a small volum e of ascites. There is moderate thoracolumbar spondylosis. 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 IMPRESSION: 1. Dilated loop of small bowel, likely adynamic ileus. 2. Small sliding hiatal hernia. 3. Small volume of ascites. Reviewed, dictated and finalized at location A. AULIC SPINNER
--- NOTE | 2022-06-06 14:55 | ED.ABDPAIN ---
HPI - Abdominal Pain General Chief Complaint: Abdominal Pain Stated Complaint: abdominal pain Time Seen by Provider: 06/06/22 14:54 Source: patient and RN notes reviewed Mode of arrival: ambulatory Limitations: no limitations History of Present Illness HPI narrative: Patient began having some abdominal pain last evening. She said that it would come and go sometimes it felt severe other times it was just mild. She tried to eat some crackers and cheese this morning and her pain became immediate. She said she had a episode of pancreatitis 10 years ago and this feels similar to that. MD elicited complaint: abdominal pain Pertinent past history: other ( Pancreatitis 10 years ago) Onset (ago): day(s) ( last night) Pain Consistency: constant Location: epigastric and LUQ Severity: moderate Quality: stabbing and aching Radiation: none Migration to: no migration Exacerbating factors: eating Relieving factors: nothing Associated symptoms: nausea and diarrhea Related Data Home Medications Medication Instructions Recorded Confirmed aspirin 81 mg tablet,delayed 81 mg PO DAILY 06/06/22 06/06/22 release cholestyramine (with sugar) 4 gram 1 ea PO DAILY 06/06/22 06/06/22 oral powder nebivolol 10 mg tablet 10 mg PO DAILY 06/06/22 06/06/22 spironolactone 50 mg tablet 50 mg PO DAILY 06/06/22 06/06/22 Allergies Allergy/AdvReac Type Severity Reaction Status Date / Time meperidine AdvReac Intermediate NAUSEA, Verified 06/06/22 16:32 VOMITING, HEADACHE iohexol AdvReac Shakiness Verified 06/06/22 15:09 [From contrast - CT, X-RAY] Review of Systems Review of Systems: All systems reviewed & are unremarkable except as noted in HPI and below Constitutional: Constitutional: Denies chills and Denies fever(s) Gastrointestinal: Gastrointestinal: Denies vomiting PMFSH Past Medical History Medical History (Updated 06/06/22 @ 17:13 by Uvaldo Garcia MD) Heart murmur Hypertension Pancreatitis Surgical History Surgical History (Updated 06/06/22 @ 15:04 by Uvaldo Garcia MD) History of total abdominal hysterectomy Hx of cholecystectomy Exam Const: General: healthy appearing, no acute distress and alert Nutritional Appearance: well nourished Orientation/consciousness: patient oriented x3 Limitations: no limitations HENMT: Head: normal to inspection Ears: external ears normal Face and sinus: normal facial exam Mouth: Yes moist mucous membranes Eyes: Conjunctivae: conjunctivae normal Pupils: Equal, round and reactive pupils present EOM: EOMs intact bilaterally Neck: Neck: normal visual inspection Resp: Effort & Inspection: normal respiratory effort Auscultation: clear to auscultation bilaterally Cardio: Rate: regular rate Rhythm: regular rhythm GI: GI Palp: Yes Soft to palpation, Yes Tenderness to palpation present (GI) ( moderate epigastrium and left upper quadrant) and Yes Guarding due to palpation present (GI) ( mild LUQ) Auscultation: normal bowel sounds Back/Spine/Pelvis: Cervical Spine: cervical ROM normal Thoracic/Lumbar Spine: thoraco-lumbar ROM normal Skin: General skin exam: normal color Rashes: no rashes Neuro: General: patient oriented x3, moves all extremities, no focal motor deficits and CN's II-XI intact bilaterally Speech: normal speech Gait exam (Neuro): Normal gait present Extrem: General: normal to inspection and no clubbing, cyanosis or edema Psych: Mental Status: mental status grossly normal Affect: normal affect Attitude: cooperative Course Course Emergency Course: offer the patient admission to the hospital for adynamic ileus with IV fluids, NPO and recheck tomorrow. I also discussed going home after a shot of Reglan having only clear fluids. She is given precautions for returning any worsening abdominal pain, abdominal pain becoming constant, fever chills, severe vomiting peer she also should return if her symptoms have not resolved in the next 24 hours. V
[2022-06-06 14:57] VITALS: BP 123/73; PULSE 66; RESP 14; TEMP 36.5; O2SAT 100
[2022-06-06] MEDS: diphenhydrAMINE HCl INJ 50 MG/ML VIAL 25 MG IV PUSH (15:20)
[2022-06-06 15:31] LABS: Basophils Absolute Auto 0.03 K/mm3 (0.00-0.10); Basophils Percent Auto 0.4 % (0.0-1.0); Eosinophils Absolute Auto 0.07 K/mm3 (0.02-0.50); Eosinophils Percent Auto 0.8 % (1.0-6.0); Hemoglobin 12.7 g/dL (11.7-13.8); Immature Granulocyte Absolute 0.02 K/mm3 (0.00-0.00); Immature Granulocyte Percent A 0.2 % (0.0-0.0); Lymphocytes Absolute Auto 2.35 K/mm3 (1.10-4.50); Lymphocytes Percent Auto 27.8 % (18.0-42.0); Mean Corpuscular HGB Conc 32.6 g/dL (32.0-36.0); Mean Corpuscular Hemoglobin 31.8 pg (27.0-31.0); Mean Corpuscular Volume 97.7 fL (78.0-102.0); Monocytes Absolute Auto 0.69 K/mm3 (0.10-0.90); Monocytes Percent Auto 8.2 % (2.0-11.0); Neutrophils Absolute Auto 5.3 K/mm3 (1.7-7.2); Neutrophils Percent Auto 62.6 % (50.0-70.0); Platelet Count Result 264 K/mm3 (150-420); Red Blood Count 3.99 M/mm3 (4.20-5.40); White Blood Count 8.5 K/mm3 (4.8-10.8)
[2022-06-06 15:46] LABS: Alanine Aminotransferase 45 U/L (14-59); Albumin Level 3.7 g/dL (3.4-5.0); Alkaline Phosphatase 90 U/L (46-116); Anion Gap 11 mmol/L (8-16); Aspartate Amino Transferase 31 U/L (15-37); Bilirubin Direct 0.1 mg/dL (0-0.2); Bilirubin,Total 0.4 mg/dL (0.00-1.00); Blood Urea Nitrogen 21 mg/dL (7-18); Calcium 9.4 mg/dL (8.5-10.1); Carbon Dioxide 27 mmol/L (21-32); Chloride 105 mmol/L (98-108); Estimated CRCL calculation 36 ml/min; Estimated Glomerular Filt Rate 48; Glucose 99 mg/dL (70-99); Lipase 41 U/L (16-77); Osmolality Calculated 299 mOsm/kg (285-295); Potassium 4.2 mmol/L (3.5-5.1); Sodium 143 mmol/L (136-145); Total Protein 7.4 g/dL (6.4-8.2)
[2022-06-06 15:49] LABS: Lactic Acid Reflex 1.8 mmol/L (0.4-2.0)
[2022-06-06 15:57] LABS: CRP < 0.5 mg/dL (0.0-0.9)
--- NOTE | 2022-06-06 16:07 | PC.NURSE ---
pt ambulated to bathroom. urine collected.
[2022-06-06 16:10] VITALS: BP 121/68; PULSE 63; RESP 18; O2SAT 99
[2022-06-06 16:13] LABS: Amylase 63 U/L (25-115)
[2022-06-06 16:19] LABS: Add Urine Microscopic? NO; Appearance Urine Clear (Clear); Bilirubin Urine Negative (Negative); Blood Urine Negative (Negative); Color Urine Light Yellow (Yellow); Glucose Urine UA Negative (Negative); Ketones Urine Negative (Negative); Leukocyte Esterase Ur Negative LEU/UL (Negative); Nitrate Urine Negative (Negative); Protein Urine Negative (Negative); Specific Grav Ur >= 1.030 (1.010-1.020); Urobilinogen Urine 0.2 mg/dL (0.2-1.0); pH Urine 5.5 (5.0-8.0)
--- NOTE | 2022-06-06 16:59 | PC.NURSE ---
pt resting per cot. call newell in reach. no reaction noted or voiced per pt.
[2022-06-06 17:02] VITALS: BP 124/68; PULSE 62; RESP 20; TEMP 36.5; O2SAT 99
--- NOTE | 2022-06-06 17:07 | PC.NURSE ---
dr finn in with pt and discussing plan of care.
--- NOTE | 2022-06-06 17:10 | PC.NURSE ---
pt declined observation admission offered per dr finn and again confirmed per this policy writer.
[2022-06-06] MEDS: METOCLOPRAMIDE HCL INJ 10 MG/2 ML VIAL IM (17:16)
== END 2022-06-06 17:23 | disposition home or self-care (01) ==
PROVIDERS: Emergency Provider Emergency Medicine; PCP Internal Medicine
DX: K56.0 Paralytic ileus (principal); I10 Essential (primary) hypertension; Z79.82 Long term (current) use of aspirin
CPT/HCPCS: 36415; 74177; 80053; 81003; 82150; 82248; 83605; 83690; 85025; 86140; 96372; 96374; 99284; J1200; J2765; Q9967

== ENCOUNTER 2022-06-13 07:57 | Outpatient (CLI) | payer MEDICARE, SELFPAY ==
[2022-06-13 08:14] LABS: Basophils Absolute Auto 0.04 K/mm3 (0.00-0.10); Basophils Percent Auto 0.7 % (0.0-1.0); Eosinophils Absolute Auto 0.14 K/mm3 (0.02-0.50); Eosinophils Percent Auto 2.4 % (1.0-6.0); Hematocrit 39.2 % (35.0-42.0); Immature Granulocyte Absolute 0.01 K/mm3 (0.00-0.00); Immature Granulocyte Percent A 0.2 % (0.0-0.0); Lymphocytes Absolute Auto 1.97 K/mm3 (1.10-4.50); Lymphocytes Percent Auto 34.4 % (18.0-42.0); Mean Corpuscular HGB Conc 33.2 g/dL (32.0-36.0); Mean Corpuscular Hemoglobin 32.1 pg (27.0-31.0); Mean Corpuscular Volume 96.8 fL (78.0-102.0); Mean Platelet Volume 10.3 fl (9.2-11.8); Monocytes Absolute Auto 0.36 K/mm3 (0.10-0.90); Monocytes Percent Auto 6.3 % (2.0-11.0); Neutrophils Absolute Auto 3.2 K/mm3 (1.7-7.2); Platelet Count Result 279 K/mm3 (150-420); Red Blood Count 4.05 M/mm3 (4.20-5.40); White Blood Count 5.7 K/mm3 (4.8-10.8)
[2022-06-13 08:16] LABS: Add Urine Microscopic? YES; Appearance Urine Clear (Clear); Bilirubin Urine Negative (Negative); Blood Urine Negative (Negative); Color Urine Light Yellow (Yellow); Glucose Urine UA Negative (Negative); Ketones Urine Negative (Negative); Leukocyte Esterase Ur 2+ LEU/UL (Negative); Nitrate Urine Negative (Negative); Protein Urine Negative (Negative); Specific Grav Ur 1.025 (1.010-1.020); Urobilinogen Urine 0.2 mg/dL (0.2-1.0); pH Urine 5.5 (5.0-8.0)
[2022-06-13 08:22] LABS: Creatinine Urine 107.57 mg/dL (40-278)
[2022-06-13 08:23] LABS: Bacteria Urine Trace /hpf; RBC Urine 0-2 /hpf (0-2); Squamous Epithelial Cell Urine Few /hpf (Few); WBC Urine 16-20 /hpf (0-3)
[2022-06-13 08:24] LABS: Hemoglobin A1C 5.4 % (<5.7); Mucus Urine Moderate /lpf
[2022-06-13 08:48] LABS: Alanine Aminotransferase 51 U/L (14-59); Albumin Level 3.8 g/dL (3.4-5.0); Alkaline Phosphatase 90 U/L (46-116); Anion Gap 7 mmol/L (8-16); Aspartate Amino Transferase 22 U/L (15-37); Bilirubin,Total 0.5 mg/dL (0.00-1.00); Blood Urea Nitrogen 17 mg/dL (7-18); Calcium 9.1 mg/dL (8.5-10.1); Carbon Dioxide 28 mmol/L (21-32); Chloride 108 mmol/L (98-108); Cholesterol 164 mg/dL (0-200); Creatine Kinase 47 U/L (26-192); Estimated Glomerular Filt Rate 52; Glucose 85 mg/dL (70-99); HDL Direct 55 mg/dL (40-60); LDL Cholesterol Calculated 73 mg/dL (<130); Osmolality Calculated 296 mOsm/kg (285-295); Potassium 4.4 mmol/L (3.5-5.1); Sodium 143 mmol/L (136-145); Total Protein 7.3 g/dL (6.4-8.2); Triglycerides 181 mg/dL (0-150)
[2022-06-16 20:06] LABS: Vitamin D 25 Hydroxy 34 ng/mL (30-100)
== END 2022-06-13 07:58 | disposition home or self-care (01) ==
LOC: CHSLAB 07:59
PROVIDERS: PCP Internal Medicine; Visit Provider Internal Medicine
DX: I10 Essential (primary) hypertension (principal); M81.0 Age-related osteoporosis without current pathological fracture; R73.01 Impaired fasting glucose; E78.2 Mixed hyperlipidemia; R82.90 Unspecified abnormal findings in urine
CPT/HCPCS: 36415; 80053; 80061; 81001; 82043; 82306; 82550; 83036; 85025; 87086

== ENCOUNTER 2022-07-03 15:02 | Outpatient (CLI) | payer MEDICARE, SELFPAY ==
[2022-07-06 16:18] LABS: Thyrotropin Receptor Antibody <1.00 IU/L (<=2.00)
== END 2022-07-03 15:03 | disposition home or self-care (01) ==
LOC: CHSLAB 15:04
PROVIDERS: PCP Internal Medicine; Visit Provider Internal Medicine
DX: H05.20 Unspecified exophthalmos (principal)
CPT/HCPCS: 36415; 83519

== ENCOUNTER 2022-12-25 06:47 | Outpatient (CLI) | payer MEDICARE, SELFPAY ==
--- NOTE | ~2022-12-25 | MR_ITS ---
EXAMINATION: MR brain/brain stem wo/w con DATE: 12/25/2022 08:00 INDICATION: Meningioma. TECHNIQUE: Magnetic resonance imaging (MRI) of the brain and brainstem was performed without and with 13 mL MultiHance intravenous contrast. COMPARISON: Brain MRI 06/18/2021 FINDINGS: There is a small old infarct in left cerebellum. There are scattered areas of nonspecific i ncreased T2-weighted signal intensity in the cerebral white matter. At the anterior falx, there is a 14 x 11 x 12 mm enhancing extra-axial mass, consistent with a meningioma. There is no acute ischemic infarct or intracranial hemorrhage. The ventricles are normal in size. There is anteroposterior elong ation of the ocular globes. There are likely changes of ocular lens replacement surgeries. The parana kasandra sinuses are clear. The mastoid air cells are normal. IMPRESSION: 1. Stable 14 mm meningioma at the anterior falx. 2. Small old left cerebellar infarct. 3. Stable mild nonspecific cerebral white matter disease, which likely represents chronic small vesse l ischemic disease. Reviewed, dictated and finalized at location A. IMPRESSION: 1. Stable 14 mm meningioma at the anterior falx. 2. Small old left cerebellar infarct. 3. Stable mild nonspecific cerebral white matter disease, which likely represen ts chronic small vessel ischemic disease.
== END 2022-12-25 06:48 | disposition home or self-care (01) ==
LOC: CHSIMG 06:48
PROVIDERS: PCP Internal Medicine
DX: D32.9 Benign neoplasm of meninges, unspecified (principal); R90.82 White matter disease, unspecified; Z86.73 Personal history of transient ischemic attack (TIA), and cerebral infarction without residual deficits
CPT/HCPCS: 70553; A9577

== ENCOUNTER 2023-01-08 07:34 | Outpatient (CLI) | payer MEDICARE, SELFPAY ==
[2023-01-08 07:46] LABS: Basophils Absolute Auto 0.07 K/mm3 (0.00-0.10); Basophils Percent Auto 1.4 % (0.0-1.0); Eosinophils Absolute Auto 0.18 K/mm3 (0.02-0.50); Eosinophils Percent Auto 3.7 % (1.0-6.0); Hematocrit 36.9 % (35.0-42.0); Hemoglobin 12.1 g/dL (11.7-13.8); Immature Granulocyte Absolute 0.01 K/mm3 (0.00-0.00); Immature Granulocyte Percent A 0.2 % (0.0-0.0); Lymphocytes Absolute Auto 2.13 K/mm3 (1.10-4.50); Lymphocytes Percent Auto 43.2 % (18.0-42.0); Mean Corpuscular HGB Conc 32.8 g/dL (32.0-36.0); Mean Corpuscular Volume 97.6 fL (78.0-102.0); Mean Platelet Volume 9.9 fl (9.2-11.8); Monocytes Absolute Auto 0.47 K/mm3 (0.10-0.90); Monocytes Percent Auto 9.5 % (2.0-11.0); Neutrophils Absolute Auto 2.1 K/mm3 (1.7-7.2); Platelet Count Result 268 K/mm3 (150-420); Red Blood Count 3.78 M/mm3 (4.20-5.40); Red Cell Distribution Width 13.3 % (11.6-14.4); White Blood Count 4.9 K/mm3 (4.8-10.8)
[2023-01-08 07:50] LABS: Appearance Urine Clear (Clear); Bilirubin Urine Negative (Negative); Blood Urine Negative (Negative); Color Urine Light Yellow (Yellow); Glucose Urine UA Negative (Negative); Ketones Urine Negative (Negative); Leukocyte Esterase Ur Trace LEU/UL (Negative); Nitrate Urine Negative (Negative); Protein Urine Negative (Negative); Specific Grav Ur 1.015 (1.010-1.020); Urobilinogen Urine 0.2 mg/dL (0.2-1.0); pH Urine 5.5 (5.0-8.0)
[2023-01-08 08:00] LABS: Add Urine Microscopic? YES; Bacteria Urine Trace /hpf; Creatinine Urine 83.79 mg/dL (40-278); MALB Creatinine Ratio 15.5 mg/g (0-30); Microalbumin Urine Random < 13.0 mg/L; RBC Urine None seen /hpf (0-2); Squamous Epithelial Cell Urine Few /hpf (Few); WBC Urine 0-3 /hpf (0-3)
[2023-01-08 08:02] LABS: Hemoglobin A1C 5.8 % (<5.7)
[2023-01-08 08:43] LABS: Alanine Aminotransferase 35 U/L (14-59); Albumin Level 3.7 g/dL (3.4-5.0); Alkaline Phosphatase 97 U/L (46-116); Anion Gap 7 mmol/L (8-16); Aspartate Amino Transferase 22 U/L (15-37); Bilirubin,Total 0.6 mg/dL (0.00-1.00); Blood Urea Nitrogen 19 mg/dL (7-18); Calcium 9.5 mg/dL (8.5-10.1); Carbon Dioxide 28 mmol/L (21-32); Chloride 107 mmol/L (98-108); Cholesterol 175 mg/dL (0-200); Creatine Kinase 77 U/L (26-192); Estimated Glomerular Filt Rate 55; Free T3 2.84 pg/mL (2.18-3.98); Free T4 Free Thyroxine 0.96 ng/dL (0.76-1.46); Glucose 95 mg/dL (70-99); HDL Direct 62 mg/dL (40-60); LDL Cholesterol Calculated 90 mg/dL (<130); Osmolality Calculated 296 mOsm/kg (285-295); Potassium 4.9 mmol/L (3.5-5.1); Sodium 142 mmol/L (136-145); Thyroid Stimulating Hormone 1.02 uIU/mL (0.36-3.74); Total Protein 7.3 g/dL (6.4-8.2); Triglycerides 114 mg/dL (0-150)
[2023-01-11 21:50] LABS: Vitamin D 25 Hydroxy 32 ng/mL (30-100)
== END 2023-01-08 07:35 | disposition home or self-care (01) ==
LOC: CHSLAB 07:37
PROVIDERS: PCP Internal Medicine; Visit Provider Internal Medicine
DX: R73.01 Impaired fasting glucose (principal); K50.10 Crohn's disease of large intestine without complications; I10 Essential (primary) hypertension; D64.9 Anemia, unspecified; R53.82 Chronic fatigue, unspecified; N39.0 Urinary tract infection, site not specified; E78.2 Mixed hyperlipidemia; M81.0 Age-related osteoporosis without current pathological fracture
CPT/HCPCS: 36415; 80053; 80061; 81001; 82043; 82306; 82550; 83036; 84439; 84443; 84481; 85025

== ENCOUNTER 2023-01-14 08:07 | Outpatient (CLI) | payer MEDICARE, SELFPAY ==
--- NOTE | ~2023-01-14 | MM_ITS ---
EXAMINATION: MM screening [facility] HISTORY: Screening mammogram TECHNIQUE: Craniocaudal and mediolateral oblique 3-D tomosynthesis images were obtained and synthetic 2-D images were generated. CAD analysis was submitted and interpreted. COMPARISON: 12/02/2021, 11/06/2020, 11/04/2019 bilateral screening mammogram examinations BREAST PARENCHYMAL COMPOSITION: There are scattered areas of fibroglandular density. FINDINGS: There is no evidence of suspicious mass, calcification, or architectural distortion to sugg est malignancy in either breast. There has been no suspicious interval change. IMPRESSION: 1. No mammographic evidence of malignancy. 2. Recommend routine screening mammography in one year. BI-RADS Category 1: Negative Reviewed, dictated and finalized at location A.
== END 2023-01-14 08:08 | disposition home or self-care (01) ==
LOC: CHSIMG 08:09
PROVIDERS: PCP Internal Medicine; Visit Provider Internal Medicine
DX: Z12.31 Encounter for screening mammogram for malignant neoplasm of breast (principal)
CPT/HCPCS: 77063; 77067

== ENCOUNTER 2023-04-15 09:34 | Outpatient (CLI) | payer MEDICARE, SELFPAY ==
--- NOTE | ~2023-04-15 | DEXA_ITS ---
Bone Density Report Name: KRYSTYNA SPRAGUE Age: 72 Sex: Female Ethnicity: White Date of : 1950 Indication: postmenopausal; screening for osteoporosis; inflammatory bowel disease; hysterectomy; Referring Provider: Ezekiel Begum Study: Bone densitometry was performed. Exam Date: April 15, 2023 Accession number: [id number] Bone Density: Region BMD T-score Z-score Classification AP Spine(L1, L2, L3) 0.780 -2.2 0.0 Osteopenia Femoral Neck (Left) 0.760 -0.8 1.1 Normal Total Hip (Left) 0.809 -1.1 0.5 Osteopenia Femoral Neck (Right) 0.545 -2.7 -0.8 Osteoporosis Total Hip (Right) 0.699 -2.0 -0.4 Osteopenia Femoral Neck Mean 0.653 -1.8 0.1 Osteopenia Total Hip Mean 0.754 -1.5 0.1 Osteopenia World Health Organization criteria for BMD impression classify patients as: Normal (T-score at or above -1.0), Osteopenia (T-score between -1.0 and -2.5), or Osteoporosis (T-score at or below -2.5). 10-year Fracture Risk: FRAX not reported because: Some T-score for Spine Total or Hip Total or Femoral Neck at or below -2.5 Treated for osteoporosis Clinical Information Provided by Patient: Is being treated for osteoporosis Has used the following medications: Vitamin D Has the following medical conditions: Inflammatory bowel diseases, Hysterectomy Patient maximum height was 61 Menopause Age: 51 No regular weight bearing exercise Does not regularly consume dairy products Drinks caffeinated beverages Onset of menses at age 13 Number of children 2 Impression: The patient has osteoporosis, based on the Right Femoral Neck T-score. Discussion: It is important to ask patients whether they are taking their medications and to encourage continued and appropriate compliance with their osteoporosis therapies to reduce fracture risk. It is also important to review their risk factors and encourage appropriate calcium and vitamin D intakes, exercise, fall prevention and other lifestyle measures. Follow-Up: Consider a repeat BMD and Vertebral Fracture Assessment (VFA) exam in 2 years or sooner if medically necessary, to reassess this patient's status. Reported by: Dr. Vickey Khan on 05/06/2023 11:13:00 AM. Reviewed, dictated and finalized at location AElizabeth SIERRA
== END 2023-04-15 09:35 | disposition home or self-care (01) ==
LOC: CHSIMG 09:35
PROVIDERS: PCP Internal Medicine; Visit Provider Internal Medicine
DX: Z78.0 Asymptomatic menopausal state (principal); M81.0 Age-related osteoporosis without current pathological fracture; M85.89 Other specified disorders of bone density and structure, multiple sites
CPT/HCPCS: 77080

== ENCOUNTER 2023-05-29 09:47 | Outpatient (CLI) | payer MEDICARE, SELFPAY ==
--- NOTE | 2023-06-02 10:38 | WPDHOLTEREM ---
Holter/Event Monitor Holter/Event Monitor Date of procedure: 05/29/23 Holter/Event Procedure: 24 Hr Holter Monitor Indications: Possible TIA Conclusion: 1. 24 hour holter monitor on 05/29/23. 2. Underlying rhythm is sinus rhythm. HR range 53-110 bpm; average HR 73 bpm. 3. There are 7 premature supraventricular complexes. No supraventricular tachycardia. 4. There are 3 premature ventricular complexes. No ventricular tachycardia. 5. No sinoatrial or atrioventricular blocks. No signficant pauses greater than 2 seconds. 6. No symptoms available for correlation.
== END 2023-05-29 09:48 | disposition home or self-care (01) ==
LOC: CHSCARD 09:52
PROVIDERS: PCP Internal Medicine; Visit Provider Internal Medicine
DX: G45.9 Transient cerebral ischemic attack, unspecified (principal)
CPT/HCPCS: 93225; 93226

== ENCOUNTER 2023-06-01 13:33 | Outpatient (CLI) | payer MEDICARE, SELFPAY ==
--- NOTE | ~2023-06-01 | US_ITS ---
EXAMINATION: US carotid duplex BI DATE: 06/01/2023 14:57 INDICATION: Episode of left-sided weakness TECHNIQUE: Grayscale, color Doppler, and pulsed Doppler images of the cervical carotid arteries were obtained. The degree of vessel stenosis is placed in one of the following categories: normal, <50%, 5 0-69%, >=70% but less than near-occlusion, near-occlusion, or total occlusion. Note that percent sten osis relative to normal distal artery lumen diameter is indirectly measured from velocity measurement s as described by Davion, et al. Radiology 2003; 229:340-346. Notes: Normal: Peak systolic velocity <125 centimeters/sec and no plaque <50%. Peak systolic velocity <125 ( EDV <40; ICA/CCA PSV ratio <2.0; used these factors only a tandem lesions or low cardiac output or co ntralateral disease) 50-69 %: PSV 125-230 (EDV 40-100; ratio 2-4) >= 70% but less than near occlusion: PSV greater than 230 (EDV > 100; ratio> 4.0) Near Occlusion: PSV that is variable; markedly narrowed lumen Occlusion: Absent flow on color/spectral Doppler and no lumen on jauregui scale. COMPARISON: None. FINDINGS: RIGHT: The right common carotid artery (CCA) peak systolic velocity (PSV) is 65 cm/s. The right internal car otid artery (ICA) PSV is 94 cm/s. The right ICA end-diastolic velocity (EDV) is 25 cm/s. The right IC A/CCA PSV ratio is 1.4. The external carotid artery (ECA) PSV is 60 cm/s. There is antegrade flow in the right vertebral artery. LEFT: The left CCA PSV is 74 cm/s. The left ICA PSV is 80 cm/s. The left ICA EDV is 34 cm/s. The left ICA/C CA PSV ratio is 1.0. The ECA PSV is 61 cm/s. There is antegrade flow in the left vertebral artery. IMPRESSION: 1. Less than 50% stenosis in the right internal carotid artery by sonographic criteria. 2. Less than 50% stenosis in the left internal carotid artery by sonographic criteria. Reviewed, dictated and finalized at location B. R RIGHTS SPECIALIST IMPRESSION: 1. Less than 50% stenosis in the right internal carotid artery by sonographic c rachel. 2. Less than 50% stenosis in the left internal carotid artery by sonographic tu gu.
--- NOTE | 2023-06-01 13:40 | ECHO_ITS ---
Patient Info Name: Jayla Manrique Age: 72 years : 1950 Gender: Female Ht: 61 in Wt: 140 lbs BSA: 1.67 m2 HR: 65 bpm BP: 130 / 74 mmHg Heart Rhythm: Sinus Rhythm Technical Quality: Good Exam Date: 06/01/2023 2:58 PM Exam Location: Echo Lab Patient Status: Outpatient Admit Date: 06/01/2023 Staff Ordering Physician: Ezekiel Begum MD Ship Propeller Finisher: Reece Garcia RDCS Attending Provider: Ezekiel Begum MD Referring Physician: Kel ARNODL; Exam Type: CA echo doppler color flow Study Info Indications - possible TIA Complete two-dimensional, color flow and Doppler transthoracic echocardiogram is performed. History/Risk Factors Hypertension: Yes Dyslipidemia: No Congenital Heart Disease (CHD): No Peripheral Arterial Disease (PAD): No Myocardial Infarction (IA): No Chronic Lung Disease: No Obesity: No Renal Disease: No Coronary Artery Disease (CAD) No Congestive Heart Failure (CHF): No Cardiomyopathy/LV Systolic Dysfunction: No Diabetes Mellitus: No COPD: No Tobacco Use: Never Cerebrovascular Disease: No Family History: Diabetes Mellitus, Coronary Artery Disease Deep Vein Thrombosis (DVT): None Dialysis: None Frailty Scale (CSHA): 1: Very Fit Cardiac Arrest: No Summary 1. Complete two-dimensional, color flow and Doppler transthoracic echocardiogram is performed. 2. Left ventricular chamber dimension is normal. 3. Left ventricular systolic function is normal, estimated at 60-65%. 4. There is mild concentric increased left ventricular wall thickness. 5. The left ventricular diastolic function is grade I diastolic dysfunction. 6. E/e' 12 is mildly elevated. 7. There is mild aortic valve sclerosis. 8. There is mild aortic valve regurgitation. 9. There is mild mitral valve regurgitation. 10. There is trace tricuspid valve regurgitation. 11. No pulmonary hypertension, estimated pulmonary arterial systolic pressure is 37 mmHg. Left Ventricle E/e' 12 is mildly elevated. Left ventricular chamber dimension is normal. Left ventricular systolic function is normal, estimated at 60-65%. There is mild concentric increased left ventricular wall thickness. The left ventricular diastolic function is grade I diastolic dysfunction. Right Ventricle Right ventricular systolic function is normal and with normal TAPSE 2.6 cm. Right ventricular chamber dimension is normal. Left Atria Left atrial chamber dimension is normal. Right Atria Right atrial chamber dimension is normal. Aortic Valve The aortic valve is trileaflet. There is mild aortic valve sclerosis. There is no aortic valve stenosis. There is mild aortic valve regurgitation. Pulmonic Valve There is no pulmonic regurgitation. Mitral Valve There is no mitral valve stenosis. There is mild mitral valve regurgitation. Tricuspid Valve There is trace tricuspid valve regurgitation. No pulmonary hypertension, estimated pulmonary arterial systolic pressure is 37 mmHg. Pericardium/Pleural There is no pericardial effusion. Inferior Vena Cava Normal inferior vena cava with >50% collapse upon inspiration consistent with normal right atrial pressure, 5 mmHg. Aorta The aortic root size at the sinus of Valsalva is normal. Left Ventricular Outflow Tract Name Value Normal LVOT 2D
== END 2023-06-01 13:34 | disposition home or self-care (01) ==
LOC: CHSIMG 13:34
PROVIDERS: PCP Internal Medicine; Visit Provider Internal Medicine
DX: I65.23 Occlusion and stenosis of bilateral carotid arteries (principal); I08.3 Combined rheumatic disorders of mitral, aortic and tricuspid valves
CPT/HCPCS: 93306; 93880

== ENCOUNTER → 2023-06-05 13:21 | Outpatient (CLI) | payer MEDICARE, SELFPAY ==
--- NOTE | ~2023-06-05 | MR_ITS ---
EXAMINATION: MR brain/brain stem wo/w con DATE: 06/05/2023 14:07 INDICATION: Transient ischemic episode with episode of left-sided hemiparesis TECHNIQUE: Magnetic resonance imaging (MRI) of the brain and brainstem was performed without and with 13 mL Multihance intravenous contrast. Sequences included sagittal and axial T1-weighted SE, axial d iffusion-weighted FS SE, axial T2*-weighted GRE, axial T2-weighted FLAIR, and axial T2-weighted FSE. Postcontrast axial and coronal T1-weighted SE was obtained. Apparent diffusion coefficient (ADC) maps were created. COMPARISON: 12/25/2022 FINDINGS: There are no areas of restricted diffusion to suggest acute infarction. Unchanged small old lacunar i nfarct in the left cerebellar hemisphere. No intracranial hemorrhage. No significant change in a 1.4 cm enhancing meningioma along the anterior falx. No other abnormally enhancing lesions identified.. N o significant change in a few scattered small areas of nonspecific increased T2-weighted signal inten sity in the cerebral white matter, predominantly involving the deep and periventricular white matter. There are no intraparenchymal signal abnormalities seen on the other pulse sequences. The ventricles are symmetric and normal in size. There are no abnormal extra-axial fluid collections. Flow voids ar e seen in the cerebral arteries on the T2-weighted sequences consistent with their expected patency. Mild mucosal thickening the bilateral ethmoid sinuses. Changes of bilateral intraocular lens replacem ent. Visualized orbits and soft tissues are unremarkable. IMPRESSION: 1. 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 No acute intracranial process. 2. Unchanged 14 mm meningioma along the anterior falx. 3. Stable appearance of mild scattered nonspecific cerebral white matter T2 hyperintensity consistent with chronic small vessel ischemic disease. Reviewed, dictated and finalized at location A. TICS ENGINEER IMPRESSION: 1. 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 No acute intracranial process. 2. Unchanged 14 mm meningioma along the anterior falx. 3. Stable appearance of mild scattered nonspecific cerebral white matter T2 hyp erintensity consistent with chronic small vessel ischemic disease.
== END ==
PROVIDERS: PCP Internal Medicine; Visit Provider Internal Medicine
DX: G45.9 Transient cerebral ischemic attack, unspecified (principal); R90.82 White matter disease, unspecified
CPT/HCPCS: 70553; A9577

== ENCOUNTER 2023-07-07 08:14 | Outpatient (CLI) | payer MEDICARE, SELFPAY ==
[2023-07-07 08:27] LABS: Appearance Urine Clear (Clear); Basophils Absolute Auto 0.04 K/mm3 (0.00-0.10); Basophils Percent Auto 0.8 % (0.0-1.0); Bilirubin Urine Negative (Negative); Blood Urine Negative (Negative); Color Urine Light Yellow (Yellow); Eosinophils Absolute Auto 0.11 K/mm3 (0.02-0.50); Eosinophils Percent Auto 2.2 % (1.0-6.0); Glucose Urine UA Negative (Negative); Hematocrit 39.8 % (35.0-42.0); Hemoglobin 13.2 g/dL (11.7-13.8); Immature Granulocyte Absolute 0.01 K/mm3 (0.00-0.00); Immature Granulocyte Percent A 0.2 % (0.0-0.0); Ketones Urine Negative (Negative); Leukocyte Esterase Ur 1+ (Negative); Lymphocytes Absolute Auto 2.57 K/mm3 (1.10-4.50); Lymphocytes Percent Auto 51.3 % (18.0-42.0); Mean Corpuscular HGB Conc 33.2 g/dL (32.0-36.0); Mean Corpuscular Hemoglobin 31.4 pg (27.0-31.0); Mean Corpuscular Volume 94.5 fL (78.0-102.0); Mean Platelet Volume 9.6 fl (9.2-11.8); Neutrophils Absolute Auto 1.9 K/mm3 (1.7-7.2); Neutrophils Percent Auto 37.5 % (50.0-70.0); Nitrate Urine Negative (Negative); Platelet Count Result 261 K/mm3 (150-420); Protein Urine Negative (Negative); Red Blood Count 4.21 M/mm3 (4.20-5.40); Red Cell Distribution Width 12.6 % (11.6-14.4); Urobilinogen Urine 0.2 mg/dL (0.2-1.0)
[2023-07-07 08:37] LABS: Hemoglobin A1C 5.5 % (<5.7)
[2023-07-07 08:39] LABS: Add Urine Microscopic? YES; Bacteria Urine 1+ /hpf; RBC Urine None seen /hpf (0-2); Squamous Epithelial Cell Urine Moderate /hpf (Few); WBC Urine 0-5 /hpf (0-3)
[2023-07-07 09:28] LABS: Alanine Aminotransferase 59 U/L (14-59); Albumin Level 3.8 g/dL (3.4-5.0); Alkaline Phosphatase 81 U/L (46-116); Anion Gap 11 mmol/L (8-16); Aspartate Amino Transferase 25 U/L (15-37); Bilirubin,Total 0.6 mg/dL (0.00-1.00); Blood Urea Nitrogen 26 mg/dL (7-18); Calcium 8.9 mg/dL (8.5-10.1); Carbon Dioxide 24 mmol/L (21-32); Chloride 106 mmol/L (98-108); Cholesterol 186 mg/dL (0-200); Estimated Glomerular Filt Rate 53; Free T3 2.81 pg/mL (2.18-3.98); Free T4 Free Thyroxine 0.97 ng/dL (0.76-1.46); Glucose 90 mg/dL (70-99); HDL Direct 70 mg/dL (40-60); LDL Cholesterol Calculated 85 mg/dL (<130); Osmolality Calculated 296 mOsm/kg (285-295); Potassium 4.7 mmol/L (3.5-5.1); Sodium 141 mmol/L (136-145); Thyroid Stimulating Hormone 1.62 uIU/mL (0.36-3.74); Total Protein 7.3 g/dL (6.4-8.2); Triglycerides 156 mg/dL (0-150)
== END 2023-07-07 08:15 | disposition home or self-care (01) ==
LOC: CHSLAB 08:16
PROVIDERS: PCP Internal Medicine; Visit Provider Internal Medicine
DX: I10 Essential (primary) hypertension (principal); M81.0 Age-related osteoporosis without current pathological fracture; R53.82 Chronic fatigue, unspecified; R73.01 Impaired fasting glucose; E78.2 Mixed hyperlipidemia
CPT/HCPCS: 36415; 80053; 80061; 81001; 83036; 84439; 84443; 84481; 85025

== ENCOUNTER 2024-01-12 09:14 | Outpatient (CLI) | payer MEDICARE, SELFPAY ==
[2024-01-12 09:27] LABS: Basophils Absolute Auto 0.05 K/mm3 (0.00-0.10); Basophils Percent Auto 0.9 % (0.0-1.0); Eosinophils Absolute Auto 0.16 K/mm3 (0.02-0.50); Eosinophils Percent Auto 2.9 % (1.0-6.0); Hematocrit 38.6 % (35.0-42.0); Hemoglobin 12.7 g/dL (11.7-13.8); Immature Granulocyte Absolute 0.02 K/mm3 (0.00-0.00); Immature Granulocyte Percent A 0.4 % (0.0-0.0); Lymphocytes Absolute Auto 2.34 K/mm3 (1.10-4.50); Lymphocytes Percent Auto 42.7 % (18.0-42.0); Mean Corpuscular HGB Conc 32.9 g/dL (32-36); Mean Corpuscular Hemoglobin 31.9 pg (27.0-31.0); Mean Platelet Volume 9.6 fl (9.2-11.8); Monocytes Absolute Auto 0.45 K/mm3 (0.10-0.90); Monocytes Percent Auto 8.2 % (2.0-11.0); Neutrophils Absolute Auto 2.46 K/mm3 (1.70-7.20); Neutrophils Percent Auto 44.9 % (50.0-70.0); Platelet Count Result 246 K/mm3 (150-420); Red Blood Count 3.98 M/mm3 (4.20-5.40); Red Cell Distribution Width 12.7 % (11.6-14.4); White Blood Count 5.5 K/mm3 (4.8-10.8)
[2024-01-12 09:32] LABS: Add Urine Microscopic? YES; Appearance Urine Clear (Clear); Bilirubin Urine Negative (Negative); Blood Urine Negative (Negative); Color Urine Light Yellow (Yellow); Glucose Urine UA Negative (Negative); Ketones Urine Negative (Negative); Leukocyte Esterase Ur Trace LEU/UL (Negative); Nitrate Urine Negative (Negative); Protein Urine Negative (Negative); Urobilinogen Urine 0.2 mg/dL (0.2-1.0); pH Urine 5.5 (5.0-8.0)
[2024-01-12 09:37] LABS: RBC Urine None seen /hpf (0-2); Squamous Epithelial Cell Urine Few /hpf (Few); WBC Urine 0-3 /hpf (0-3)
[2024-01-12 09:38] LABS: Bacteria Urine Rare /hpf
[2024-01-12 09:41] LABS: Hemoglobin A1C 5.7 % (<5.7)
[2024-01-12 10:07] LABS: Alanine Aminotransferase 34 U/L (14-59); Albumin Level 3.7 g/dL (3.4-5.0); Alkaline Phosphatase 71 U/L (46-116); Anion Gap 8 mmol/L (4-12); Aspartate Amino Transferase 18 U/L (15-37); Bilirubin,Total 0.5 mg/dL (0.00-1.00); Blood Urea Nitrogen 24 mg/dL (7-18); Carbon Dioxide 27 mmol/L (21-32); Chloride 104 mmol/L (98-108); Cholesterol 208 mg/dL (0-200); Estimated Glomerular Filt Rate 58; Glucose 93 mg/dL (70-99); HDL Direct 62 mg/dL (40-60); LDL Cholesterol Calculated 120 mg/dL (<130); Osmolality Calculated 292 mOsm/kg (285-295); Potassium 4.6 mmol/L (3.5-5.1); Sodium 139 mmol/L (136-145); Total Protein 7.1 g/dL (6.4-8.2); Triglycerides 130 mg/dL (0-150)
[2024-01-14 07:14] LABS: Vitamin D 25 Hydroxy 37 ng/mL (30-100)
== END 2024-01-12 09:15 | disposition home or self-care (01) ==
LOC: CHSLAB 09:18
PROVIDERS: PCP Internal Medicine; Visit Provider Internal Medicine
DX: I10 Essential (primary) hypertension (principal); E78.2 Mixed hyperlipidemia; R73.01 Impaired fasting glucose; N39.0 Urinary tract infection, site not specified; M81.0 Age-related osteoporosis without current pathological fracture
CPT/HCPCS: 36415; 80053; 80061; 81001; 82306; 83036; 85025

== ENCOUNTER 2024-01-25 13:21 | Outpatient (CLI) | payer MEDICARE, SELFPAY ==
--- NOTE | ~2024-01-25 | MM_ITS ---
EXAMINATION: MM screening geovani BI w luke HISTORY: Screening mammogram, family history of breast cancer in her mother and sister. TECHNIQUE: Craniocaudal and mediolateral oblique 3-D tomosynthesis images were obtained and synthetic 2-D images were generated. CAD analysis was submitted and interpreted. COMPARISON: 01/14/2023, 12/02/2021, 11/06/2020 BREAST PARENCHYMAL COMPOSITION:Not Dense. There are scattered areas of fibroglandular density. FINDINGS: No suspicious mass, calcification, or architectural distortion are identified in either jacob ast to suggest malignancy. There has been no suspicious interval change. IMPRESSION: No mammographic evidence of malignancy. Recommend routine screening mammography in one year. BI-RADS Category 1: Negative Reviewed, dictated and finalized at location .
== END 2024-01-25 13:22 | disposition home or self-care (01) ==
LOC: CHSIMG 13:22
PROVIDERS: PCP Internal Medicine; Visit Provider Internal Medicine
DX: Z12.31 Encounter for screening mammogram for malignant neoplasm of breast (principal)
CPT/HCPCS: 77063; 77067

== ENCOUNTER 2024-04-12 09:56 | Outpatient (CLI) | payer MEDICARE, SELFPAY ==
[2024-04-12 10:08] LABS: Basophils Absolute Auto 0.04 K/mm3 (0.00-0.10); Basophils Percent Auto 0.4 % (0.0-1.0); Eosinophils Absolute Auto 0.11 K/mm3 (0.02-0.50); Eosinophils Percent Auto 1.2 % (1.0-6.0); Immature Granulocyte Absolute 0.02 K/mm3 (0.00-0.00); Immature Granulocyte Percent A 0.2 % (0.0-0.0); Lymphocytes Absolute Auto 2.59 K/mm3 (1.10-4.50); Lymphocytes Percent Auto 28.7 % (18.0-42.0); Mean Corpuscular HGB Conc 34.2 g/dL (32-36); Mean Corpuscular Hemoglobin 32.3 pg (27.0-31.0); Mean Corpuscular Volume 94.5 fL (78.0-102.0); Mean Platelet Volume 9.9 fl (9.2-11.8); Monocytes Absolute Auto 0.74 K/mm3 (0.10-0.90); Monocytes Percent Auto 8.2 % (2.0-11.0); Neutrophils Absolute Auto 5.52 K/mm3 (1.70-7.20); Neutrophils Percent Auto 61.3 % (50.0-70.0); Platelet Count Result 274 K/mm3 (150-420); Red Blood Count 4.02 M/mm3 (4.20-5.40); Red Cell Distribution Width 13.2 % (11.6-14.4)
[2024-04-12 11:05] LABS: Alanine Aminotransferase 40 U/L (14-59); Albumin Level 3.8 g/dL (3.4-5.0); Alkaline Phosphatase 64 U/L (46-116); Amylase 77 U/L (25-115); Anion Gap 9 mmol/L (4-12); Aspartate Amino Transferase 17 U/L (15-37); Bilirubin,Total 0.4 mg/dL (0.00-1.00); Blood Urea Nitrogen 21 mg/dL (7-18); Calcium 9.1 mg/dL (8.5-10.1); Carbon Dioxide 23 mmol/L (21-32); Chloride 108 mmol/L (98-108); Estimated Glomerular Filt Rate 47; Glucose 98 mg/dL (70-99); Lipase 137 U/L (16-77); Osmolality Calculated 293 mOsm/kg (285-295); Potassium 4.5 mmol/L (3.5-5.1); Sodium 140 mmol/L (136-145); Total Protein 7.3 g/dL (6.4-8.2)
== END 2024-04-12 09:57 | disposition home or self-care (01) ==
PROVIDERS: PCP Internal Medicine; Visit Provider Nurse Practitioner Family
DX: K52.831 Collagenous colitis (principal)
CPT/HCPCS: 36415; 80053; 82150; 83690; 85025

== ENCOUNTER 2024-04-18 10:36 | Outpatient (CLI) | payer MEDICARE, SELFPAY ==
[2024-04-18 11:20] LABS: Anion Gap 7 mmol/L (4-12); Blood Urea Nitrogen 25 mg/dL (7-18); Calcium 9.1 mg/dL (8.5-10.1); Carbon Dioxide 28 mmol/L (21-32); Chloride 106 mmol/L (98-108); Estimated Glomerular Filt Rate 43; Glucose 102 mg/dL (70-99); Osmolality Calculated 296 mOsm/kg (285-295); Sodium 141 mmol/L (136-145)
[2024-04-18 15:04] LABS: Occult Blood Negative (Negative)
== END 2024-04-18 10:37 | disposition home or self-care (01) ==
LOC: CHSLAB 10:37
PROVIDERS: PCP Internal Medicine; Visit Provider Nurse Practitioner Family
DX: K52.831 Collagenous colitis (principal)
CPT/HCPCS: 36415; 80048; 82272; 86036; 86671; 87045; 87427; 87449

== ENCOUNTER 2024-04-25 10:02 | Outpatient (CLI) | payer MEDICARE, SELFPAY ==
[2024-04-25 10:30] LABS: Add Urine Microscopic? YES; Appearance Urine Clear (Clear); Bilirubin Urine Negative (Negative); Blood Urine Negative (Negative); Color Urine Light Yellow (Yellow); Glucose Urine UA Negative (Negative); Ketones Urine Negative (Negative); Leukocyte Esterase Ur Trace (Negative); Nitrate Urine Negative (Negative); Protein Urine Negative (Negative); Specific Grav Ur <= 1.005 (1.010-1.020); Urobilinogen Urine 0.2 mg/dL (0.2-1.0); pH Urine 6.5 (5.0-8.0)
[2024-04-25 10:36] LABS: Bacteria Urine Rare /hpf; RBC Urine None seen /hpf (0-2); Squamous Epithelial Cell Urine Rare /hpf (Few); WBC Urine 0-3 /hpf (0-3)
[2024-04-25 10:45] LABS: Anion Gap 7 mmol/L (4-12); Blood Urea Nitrogen 31 mg/dL (7-18); Calcium 9.1 mg/dL (8.5-10.1); Carbon Dioxide 32 mmol/L (21-32); Chloride 104 mmol/L (98-108); Estimated Glomerular Filt Rate 48; Glucose 94 mg/dL (70-99); Osmolality Calculated 302 mOsm/kg (285-295); Potassium 4.3 mmol/L (3.5-5.1); Sodium 143 mmol/L (136-145)
== END 2024-04-25 10:03 | disposition home or self-care (01) ==
LOC: CHSLAB 10:04
PROVIDERS: PCP Internal Medicine; Visit Provider Nurse Practitioner Family
DX: R94.4 Abnormal results of kidney function studies (principal)
CPT/HCPCS: 36415; 80048; 81001

== ENCOUNTER 2024-05-14 09:01 | Outpatient (CLI) | payer MEDICARE, SELFPAY ==
[2024-05-14 10:08] LABS: Anion Gap 7 mmol/L (4-12); Blood Urea Nitrogen 32 mg/dL (7-18); Carbon Dioxide 29 mmol/L (21-32); Chloride 106 mmol/L (98-108); Estimated Glomerular Filt Rate 57; Glucose 81 mg/dL (70-99); Osmolality Calculated 299 mOsm/kg (285-295); Potassium 4.1 mmol/L (3.5-5.1); Sodium 142 mmol/L (136-145)
== END 2024-05-14 09:02 | disposition home or self-care (01) ==
LOC: CHSLAB 09:05
PROVIDERS: PCP Internal Medicine; Visit Provider Nurse Practitioner Family
DX: R94.4 Abnormal results of kidney function studies (principal)
CPT/HCPCS: 36415; 80048

== ENCOUNTER 2024-07-07 12:35 | Outpatient (CLI) | payer MEDICARE, SELFPAY | END 2024-07-07 12:36 | disposition home or self-care (01) | LOC: CHSIMG 12:36 | PROVIDERS: PCP Internal Medicine; Visit Provider Internal Medicine | DX: Z78.0 Asymptomatic menopausal state (principal); M85.89 Other specified disorders of bone density and structure, multiple sites; M81.0 Age-related osteoporosis without current pathological fracture | CPT/HCPCS: 77080 ==

== ENCOUNTER 2024-07-14 08:04 | Outpatient (CLI) | payer MEDICARE, SELFPAY ==
--- OUTSIDE RECORDS SUMMARY | 2024-07-14 08:12 | XMS_ITS | Referral Summary ---
Author Organization [facility] Address [address] [place] [id number] Care Team Providers Care Armature [employer] Name Role Phone Unknown, Notinfile Primary Care Provider Unavail able Allergies Active Allergy Reactions Criticality Noted Date Comments Metronidazole Rash Medium 01/27/2018 Iodinated Contrast Media Unknown Meperidine Headache,Nausea only Low Medications cholestyramine (QUESTRAN) 4 gram packet 12/03/2017 Active cholecalciferol (VITAMIN D-3) 1,000 unit Take 1,000 Units by mouth daily. Active alendronate (FOSAMAX) 70 mg tablet Take 70 mg by mouth every 7 days 2 06/02/2018 Active aspirin 81 mg enteric coated tablet Take 81 mg by mouth daily Active nebivoloL (Bystolic) 10 mg tablet Active olmesartan-amLOD IPin-hcthiazid 20-5-12.5 mg tablet Active Active Problems Problem Noted Date Diagnosed Date Meningioma 01/27/2018 Diplopia 2010 Pseudophakia 2010 Reflex sympathetic dystrophy 11/07/2009 Hypertension 11/02/2009 Immunizations Immunization Administration Dates Next Due Pneumococcal Conjugate PCV 13 04/17/2015 Pneumococcal Polysaccharide PPV23 10/27/2016 Tdap 06/24/2019,06/09/2019 ZOSTER Recombinant 01/28/2019,01/26/2019, 019 Social History Tobacco Use Types Packs/Day Years Used Date Smoking Tobacco: Never Smokeless Tobacco: Never Tobacco Cessation:Counseling Given: No Alcohol Use Standard Drinks/Week Comments Yes 2 (1 standard drink = 0.6 oz pur e alcohol) Comments Unknown Sex and Gender Information Value Date Recorded Sex Assigned at Not on file Legal Sex Female 12:30 AM INTEGRATION TECHNICIAN Gender Identity Not on file Sexual Orientation Straight 07/15/2020 3: 54 PM INTEGRATION TECHNICIAN Occupation Industry Job Start Date Job End Date retired Not on file Not on file Not on file Last Filed Vital Signs Vital Sign Reading Time Taken Comments Blood Pressure 183/90 01/27/2018 9:00 AM CDT Pulse 62 07/18/2019 9:15 AM CDT Temperature - - Respiratory Rate - - Oxygen Saturation - - Inhaled Oxygen Concentration - - Weight 66.4 kg (146 lb 6.4 oz) 07/18/2019 9:15 A M CDT Height 154.9 cm (5' 1 ) 07/18/2019 9:15 AM CDT Body Mass Index 27.66 07/18/2019 9:15 AM CDT Plan of Treatment Not on file Insurance [facility] MEDICARE MEDICARE [facility] MEDICARE Address: [facility] [address] [place] [address] Care Teams [employer] Relationship Specialty Start Date End Date Unknown, Notinfile PCP - General 12/09/17
--- OUTSIDE RECORDS SUMMARY | 2024-07-14 08:13 | XMS_ITS | Referral Summary ---
Author Organization [facility] Address [address] [place] [address] Care Team Providers Care Aquatic Performer Name Role Phone Ezekiel Begum MD Primary Care Provider [phone] Lincoln Torrez APRN-DEBT AND BUDGET COUNSELOR Unavailable [phone] Source Comments [facility],non-owned Affiliates and Associated Physician Practices is amultiple site organization consisting of ambulatory clinics and hospital sitesin [place], [place], [place] and [place]. This disclosure is being madepursuant to the Care Everywhere program and may not contain all information available regarding this patient. Last updated 18.[facility] Pylba Allergies Active Allergy Reactions Criticality Noted Date Comments Contrast-Iodinated Agents For Ct/Other Unknown 08/26/2023 Meperidine Headache 08/26/2023 Medications * Be aware that medications may not be up to date on this document. Alwaysverify current medications with the patient. Medication Sig Dispensed Refills Start Date End Date Status spironolactone (Aldactone) 50 MG tablet 09/05/2022 Active nebivolol (Bystolic) 10 MG tablet Active olmesartan (Benicar) 20 MG tablet 09/05/2022 Active aspirin EC (Ecotrin) 81 MG tablet Take 1 (one) tablet by mouth once daily Active Cholestyramine 4 GM/DOSE 05/13/2022 Active vitamin D3 (Cholecalciferol) (25 MCG) 1000 UNIT capsule Take 1 (one) capsule by mouth once daily Active Prolia 60 MG/ML SC injection 06/11/2023 Active Active Problems Problem Noted Date Diagnosed Date Degenerative myopia of both eyes 08/26/2023 Thyroid eye disease 09/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 Eyelid retraction of right eye 04/03/2022 Proptosis 04/03/2022 Diplopia 01/23/2022 Esotropia 01/23/2022 Meningioma, cerebral 01/23/2022 Social History Tobacco Use Types Packs/Day Years Used Date Smoking Tobacco: Never Assessed Sex and Gender Information Value Date Recorded Sex Assigned at Female 08/29/2023 8:42 AM CDT Gender Identity Female 08/29/2023 8:42 AM CDT Sexual Orientation Straight 08/29/2023 8: 42 AM CDT Plan of Treatment Upcoming Encounters Date Type Department Care Team (Late st Contact Info) Description 08/24/2024 10:45 AM CDT Office Visit [facility] - Ophthalmology [address] [place] [phone] Sherrie Pinto MD [address] [place] [address] [place] [address] Care Teams Aquatic Performer Relationship Specialty Start Date End Date Ezekiel Begum MD [address] [place] [address] PCP - General Internal Medicine 08/26/23 Lincoln Torrez APRN-VALERIE [address] [facility] [address] [place] [address] Nurse Practitioner 08/26/23
--- OUTSIDE RECORDS SUMMARY | 2024-07-14 08:13 | XMS_ITS | Patient Health Summary ---
Author Organization [facility] Address [address] [facility] [place] [address] Care Team Providers Care Interventional Radiology Rn Name Role Phone Ezekiel Begum MD Primary Care Provider [phone] Lincoln Torrez APRN-TUB WASH OPERATOR Unavailable [phone] Note from [facility],non-owned Affiliates and Associated Physician Practices is amultiple site organization consisting of ambulatory clinics and hospital sitesin [place], [place], [place] and [place]. This disclosure is being madepursuant to the Care Everywhere program and may not contain all information available regarding this patient. Last updated 18.[facility] Allergies * Contrast-Iodinated Agents For Ct/Other(Unknown) * Meperidine(Headache) Medications * Be aware that medications may not be up to date on this document. Alwaysverify current medications with the patient. * spironolactone (Aldactone) 50 MG tablet(Started 09/05/2022) * nebivolol (Bystolic) 10 MG tablet * olmesartan (Benicar) 20 MG tablet(Started 09/05/2022) * aspirin EC (Ecotrin) 81 MG tablet Take 1 (one) tablet by mouth once daily * Cholestyramine 4 GM/DOSE(Started 05/13/2022) * vitamin D3 (Cholecalciferol) (25 MCG) 1000 UNIT capsule Take 1 (one) capsule by mouth once daily * Prolia 60 MG/ML SC injection(Started 06/11/2023) Active Problems Problem Noted Date Diagnosed Date [...] Orientation Straight 08/29/2023 8: 42 AM CDT Procedures * THYROID PEROXIDASE ANTIBODY(Performed 03/12/2022) Performed for Eyelid retraction of right eye * THYROID STIMULATING IMMUNOGLOBULIN (TSI)(Performed 03/12/2022) Performed for Eyelid retraction of right eye * THYROGLOBULIN ANTIBODY(Performed 03/12/2022) Performed for Eyelid retraction of right eye * EYE EXAM(Performed 12/10/2021) Results * THYROID PEROXIDASE ANTIBODY (03/12/2022 3:07 PM CDT) Thyroid Peroxidase TPO Antibody 0.3 0.0 - 9.0 IU/mL 03/13/2022 2:30 PM CDT [employer] ([facility]) Comment: Performed By: [employer] [address] [place] [address] Watch Crystal Molder: Salazar Cadena MD, PhD Blood BLOOD SPECIMEN / Unknown Lab Venipuncture / Unknown 03/12/2022 3:07 PM CDT 03/12/2022 3:43 PM CDT Sherrie Pinto MD LAB - CHEMISTRY O RDERABLES [facility] [employer] [facility]) [address] * THYROGLOBULIN ANTIBODY (03/12/2022 3:07 PM CDT) Thyroglobulin Antibody <0.9 0.0 - 4.0 IU/mL 03/13/2022 2:43 PM CDT [employer] ([facility]) Comment: INTERPRETIVE INFORMATION: Thyroglobulin Antibody A value of 4.0 IU/mL or less indicates a negative result for thyroglobulin antibodies. The Thyroglobulin Antibody assay is being performed using the [employer] Access DxI method. Performed By: [facility] [employer] [address] [place] [address] Watch Crystal Molder: Salazar Cadena MD, PhD Blood BLOOD SPECIMEN / Unknown Lab Venipuncture / Unknown 03/12/2022 3:07 PM CDT 03/12/2022 3:43 PM CDT Sherrie Pinto MD LAB - CHEMISTRY O KUNAL Performing Organization Address [facility] Co de Phone Number [facility] [employer] [facility]) [address] [place] [address] * THYROID STIMULATING IMMUNOGLOBULIN (TSI) (03/12/2022 3:07 PM CDT) Pathologist [facility] Thyroid Stimulating Immunoglobulin TSI <0.10 <=0.54 IU/L 03/15/2022 1:34 AM CDT [facility] [employer] ([facility]) Comment: INTERPRETIVE INFORMATION: Thyroid Stimulating Immunoglobulin (TSI) 0.54 IU/L or less.........Consistent with healthy thyroid function or non-Graves thyroid or autoimmune disease. Those with healthy thyroid function typically have results less than 0.1 IU/L. 0.55 IU/L or greater......Consistent with Graves disease (autoimmune hyperthyroidism) This assay specifically detects thyroid stimulating autoantibodies. For diagnostic purposes, the results obtained from this assay should be used in combination with clinical examination, patient medical history, and other findings. Performed By: [employer] [address] [place] [address] Watch Crystal Molder: Salazar Cadena MD, PhD Blood BLOOD SPECIMEN / Unknown Lab Venipuncture / Unknown 03/12/2022 3:07 PM CDT 03/12/2022 3:43 PM CDT Sherrie Pinto MD LAB - CHEMISTRY O KUNAL Performing Organization Address [facility] Co de Phone Number [facility] [employer] ([facility]) [address] [place] [address] * EYE EXAM (12/10/2021) Anatomical Region Laterality Modality Other Narrative 12/10/2021 Ordered by an unspecified provider. Scanned Document SCANNING ONLY Care Teams Interventional Radiology Rn Relationship Specialty Start Date End Date Ezekiel Begum MD [address] [place] [id number] PCP - General Internal Medicine 08/26/23 Lincoln Torrez APRN-TUB WASH OPERATOR [address] [facility] [address] [place] [address] Nurse Practitioner 08/26/23
--- OUTSIDE RECORDS SUMMARY | 2024-07-14 08:13 | XMS_ITS | Clinical Summary ---
Author Organization [facility] Address [address] [place] [phone] Care Team Providers Care Brick Siding Applicator Name Role Phone Unknown, Notinfile Primary Care [...] 10/27/2016 Tdap 06/24/2019,06/09/2019 ZOSTER Recombinant 01/28/2019,01/26/2019, 019 Surgical History Surgery Date Site/Laterality Comments [place] CHOLECYSTECTOMY Cholecystectomy - (Added by TW Conv) [place] TOTAL ABDOMINAL HYSTERECT W/WO RMVL TUBE OVARY Total Abdominal Hysterectomy - (Added by TW Conv) CATARACT EXTRACTION Cataract Surgery - jatin eyes (Added by TW Conv) ELBOW SURGERY HYSTERECTOMY Medical History Medical History Date Comments Personal history of other di seases of the circulatory system History of hypertension - (A dded by TW Conv) Hypertension Colitis Family History Medical History Relation Name Comments Colitis Brother Hypertension Father Cancer Mother Diabetes Other 1 Diabetes Mellit us - (Added by TW Conv) Depression Other 2 Depression - (A dded by TW Conv) Hypertension Other 3 Hypertension - (Added by TW Conv) Relation Name Status Comments Brother Father Mother Other 1 Other 2 Other 3 Social History Tobacco Use Types Packs/Day Years Used Date Smoking Tobacco: Never Smokeless Tobacco: Never Tobacco Cessation:Counseling Given: No Alcohol Use Standard Drinks/Week Comments Yes 2 (1 standard drink = 0.6 oz pur e alcohol) Comments Unknown Sex and Gender Information Value Date Recorded Sex Assigned at Not on file Legal Sex Female 12:30 AM 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 Gender Identity Not on file Sexual Orientation Straight 07/15/2020 3: 54 PM MUSIC AUTOGRAPHER Occupation Industry Job Start Date Job End Date retired Not on file Not on file Not on file Obstetrics History Last Filed Vital Signs Vital Sign Reading [...] 07/18/2019 9:15 AM CDT Plan of Treatment Health Maintenance Due Date Last Done Comments Breast Cancer Screening-Mammogram 1951 Colon Cancer Screening-Colonoscopy 1950 Depression Screening 1951 Fall Risk Assessment 1950 Hepatitis C Screening 1950 Osteoporosis Screening-Bone Density Scan 1950 Hepatitis B Screening 07/23/1969 Well Visit 65+ 07/23/2016 Influenza Vaccine (#1) 2024 DTaP/Tdap/Td Vaccine (3 - Td or Tdap) 06/24/2029, 06/09/2019 Pneumococcal vaccine 65+ Completed 10/27/2016, 12/2014 Zoster Vaccine Completed 01/28/2019, 01/09, 06/22/2018 Insurance [facility] MEDICARE MEDICARE SOLUTIONS Care Teams Brick Siding Applicator Relationship Specialty Start Date End Date Unknown, Notinfile PCP - General 12/09/17
--- OUTSIDE RECORDS SUMMARY | 2024-07-14 08:13 | XMS_ITS | Clinical Summary ---
Author Organization [facility] Address [facility] [place] [address] Care Team Providers Care Neurosurgical Nurse Name Role Phone Unavailable Primary Care Provider Unavailabl e Social History Tobacco Use Types Packs/Day Years Used Date Smoking Tobacco: Never Assessed Comments Unknown Sex and Gender Information Value Date Recorded Sex Assigned at Not on file Legal Sex Female 10:43 PM CDT Gender Identity Not on file Sexual Orientation Not on file Plan of Treatment Health Maintenance Due Date Last Done Comments Colorectal Cancer Screening Colonoscopy (10 Years) 1950 Hepatitis C 07/23/1969 DTaP, Tdap and Td Vaccines ( 1 - Tdap) 07/23/1970 Mammogram Screening 1991 Zoster Vaccines (1 of 2) 07/23/2001 Annual Medicare Wellness Visit 07/23/2016 Dexa Scan (General) 07/23/2016 Pneumococcal Vaccine: 65+ Ye ars (1 of 1 - PCV) 07/23/2016 COVID-19 Vaccine ( - 2023-2 5 season) 2024 Influenza Adult (#1) 2024 RSV Immunization or 60+ Years (1 - 1-dose 75+ series) 07/23/2026 Meningococcal B Vaccine Aged Out No l onger eligible based on patient's age to complete this topic Meningococcal Vaccine Aged Out No ester monie eligible based on patient's age to complete this topic RSV Immunizations Under 20 Months Aged Out No longer eligible based on patient's age to complete this topic Insurance MED REPLACE [facility] MEDICARE
--- OUTSIDE RECORDS SUMMARY | 2024-07-14 08:13 | XMS_ITS | Clinical Summary ---
Author Organization [facility] Address [address] [facility] [place] [address] Care Team Providers Care Brass Pourer Name Role Phone Ezekiel Begum MD Primary Care Provider [phone] [place] Torrez APRN-THERAPIST PHYS Unavailable [phone] Source Comments [facility],non-owned Affiliates and Associated Physician Practices is amultiple site organization consisting of ambulatory clinics and hospital sitesin [place], [place], [place] and [place]. This disclosure is being madepursuant to the Care Everywhere program and may not contain all information available regarding this patient. Last updated 18.[facility] [employer] Allergies Active Allergy Reactions Criticality Noted Date [...] Description 08/24/2024 10:45 AM CDT Office Visit [facility] - Ophthalmology [address] [place] [phone] Sherrie Pinto MD [address] [place] [address] [place] [address] Health Maintenance Due Date Last Done Comments BONE DENSITY TESTING 1950 COLOGUARD (AGES 45-75) - COL ON CA SCREENING 1951 COLON MONITORING 1951 COLONOSCOPY - COLON CA SCREENING 1951 CT COLONOGRAPHY - COLON CA SCREENING 1950 Colorectal Cancer Screening 1951 FIT - COLON CA SCREENING 1951 FLEX SIG - COLON CA SCREENING 1951 LIPID TESTING 1950 MAMMOGRAM 1950 HEPATITIS C SCREENING 07/19/1969 DTAP/TDAP/TD VACCINES (1 - Tdap) 07/23/1970 PNEUMOCOCCAL VACCINE 50+ (1 of 1 - PCV) 07/23/2001 ZOSTER VACCINE (1 of 2) 07/23/2001 COVID-19 VACCINE ( - 2023-2 5 season) 2024 INFLUENZA VACCINE (#1) 2024 DEPRESSION SCREENING 05/11/2024 MEDICARE AWV CALENDAR YEAR 2024 Respiratory Syncytial Virus (RSV) Vaccine Pt: or over 60 yrs (1 - 1-dose 75+ series) 07/23/2026 HEPATITIS B VACCINE Aged Out No longe r eligible based on patient's age to complete this topic HIB VACCINE Aged Out No longer eligi ble based on patient's age to complete this topic HPV VACCINE Aged Out No longer eligi ble based on patient's age to complete this topic MENINGOCOCCAL (Group B) VACCINE Aged Out No longer eligible based on patient's age to complete this topic MENINGOCOCCAL VACCINE Aged Out No ester monie eligible based on patient's age to complete this topic Care Teams Brass Pourer Relationship Specialty Start Date End Date Ezekiel Begum MD [address] [place] [address] PCP - General Internal Medicine 08/26/23 [place] Torrez, MARCEL-THERAPIST PHYS [address] [facility] [address] [place] [address] Nurse Practitioner 08/26/23
[2024-07-14 08:20] LABS: Basophils Absolute Auto 0.02 K/mm3 (0.00-0.10); Basophils Percent Auto 0.4 % (0.0-1.0); Eosinophils Absolute Auto 0.11 K/mm3 (0.02-0.50); Eosinophils Percent Auto 2.2 % (1.0-6.0); Hematocrit 39.8 % (35.0-42.0); Hemoglobin 12.7 g/dL (11.7-13.8); Immature Granulocyte Absolute 0.01 K/mm3 (0.00-0.00); Immature Granulocyte Percent A 0.2 % (0.0-0.0); Lymphocytes Absolute Auto 1.97 K/mm3 (1.10-4.50); Lymphocytes Percent Auto 39.8 % (18.0-42.0); Mean Corpuscular HGB Conc 31.9 g/dL (32-36); Mean Corpuscular Hemoglobin 30.9 pg (27.0-31.0); Mean Corpuscular Volume 96.8 fL (78.0-102.0); Monocytes Absolute Auto 0.46 K/mm3 (0.10-0.90); Monocytes Percent Auto 9.3 % (2.0-11.0); Neutrophils Absolute Auto 2.38 K/mm3 (1.70-7.20); Neutrophils Percent Auto 48.1 % (50.0-70.0); Platelet Count Result 257 K/mm3 (150-420); Red Blood Count 4.11 M/mm3 (4.20-5.40); Red Cell Distribution Width 12.5 % (11.6-14.4)
[2024-07-14 08:26] LABS: Add Urine Microscopic? YES; Appearance Urine Clear (Clear); Bilirubin Urine Negative (Negative); Blood Urine Negative (Negative); Color Urine Light Yellow (Yellow); Glucose Urine UA Negative (Negative); Ketones Urine Negative (Negative); Leukocyte Esterase Ur Trace (Negative); Nitrate Urine Negative (Negative); Protein Urine Negative (Negative); Urobilinogen Urine 0.2 mg/dL (0.2-1.0)
[2024-07-14 08:33] LABS: Hemoglobin A1C 5.6 % (<5.7)
[2024-07-14 09:04] LABS: RBC Urine None seen /hpf (0-2); WBC Urine 0-3 /hpf (0-3)
[2024-07-14 09:05] LABS: Bacteria Urine Trace /hpf; Squamous Epithelial Cell Urine Moderate /hpf (Few)
[2024-07-14 09:08] LABS: Alanine Aminotransferase 31 U/L (14-59); Albumin Level 3.8 g/dL (3.4-5.0); Alkaline Phosphatase 64 U/L (46-116); Anion Gap 8 mmol/L (4-12); Aspartate Amino Transferase 17 U/L (15-37); Bilirubin,Total 0.6 mg/dL (0.00-1.00); Blood Urea Nitrogen 22 mg/dL (7-18); CRP 1.2 mg/dL (0.0-0.9); Calcium 9.3 mg/dL (8.5-10.1); Carbon Dioxide 30 mmol/L (21-32); Chloride 107 mmol/L (98-108); Cholesterol 208 mg/dL (0-200); Estimated Glomerular Filt Rate 49; Glucose 96 mg/dL (70-99); HDL Direct 59 mg/dL (40-60); LDL Cholesterol Calculated 123 mg/dL (<130); Osmolality Calculated 303 mOsm/kg (285-295); Potassium 4.3 mmol/L (3.5-5.1); Sodium 145 mmol/L (136-145); Thyroid Stimulating Hormone 1.11 uIU/mL (0.36-3.74); Triglycerides 130 mg/dL (0-150)
[2024-07-14 09:09] LABS: Free T3 3.29 pg/mL (2.18-3.98)
[2024-07-14 09:20] LABS: Erythrocyte Sedimentation Rate 24 mm/hr (0-20)
== END 2024-07-14 08:05 | disposition home or self-care (01) ==
LOC: CHSLAB 08:05
PROVIDERS: PCP Internal Medicine; Visit Provider Internal Medicine
DX: I10 Essential (primary) hypertension (principal); R73.01 Impaired fasting glucose; E78.2 Mixed hyperlipidemia
CPT/HCPCS: 36415; 80053; 80061; 81001; 83036; 84439; 84443; 84481; 85025; 85652; 86140

== ENCOUNTER 2024-08-02 07:45 | Outpatient (CLI) | payer MEDICARE, SELFPAY ==
--- OUTSIDE RECORDS SUMMARY | 2024-08-02 07:49 | XMS_ITS | Clinical Summary ---
Author Organization [facility] Address Count includes the [facility] [place] [address] Care Team Providers Care Mattress Stuffer Name Role Phone Unavailable Primary Care Provider [...] to complete this topic Insurance MED REPLACE [facility] MEDICARE
--- OUTSIDE RECORDS SUMMARY | 2024-08-02 07:49 | XMS_ITS | Referral Summary ---
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
--- OUTSIDE RECORDS SUMMARY | 2024-08-02 07:49 | XMS_ITS | Clinical Summary ---
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
--- OUTSIDE RECORDS SUMMARY | 2024-08-02 07:49 | XMS_ITS | Clinical Summary ---
Author Organization [facility] Address [address] [place] [address] Care Team Providers Care Human Services Professional Name Role Phone Ezekiel Begum MD Primary Care Provider [phone] [place] Torrez APRN-GASOLINE DRAGLINE OPERATOR Unavailable [phone] Source Comments [facility],non-owned Affiliates and Associated Physician Practices is amultiple site organization consisting of ambulatory clinics and hospital sitesin [place], [place], [place] and [place]. This disclosure is being madepursuant to the Care Everywhere program and may not contain all information available regarding this patient. Last updated 18.[facility] Attentive.ly Allergies Active Allergy Reactions Criticality Noted Date [...] Office Visit [facility] - Ophthalmology [address] [place] [phone] Sherrie Pinto MD [address] [place] [address] [place] [address] Health Maintenance Due Date Last [...] to complete this topic MENINGOCOCCAL (Group B) VACC INE SHARED DECISION-MAKING Aged Out No longer eligibl e based on patient's age to complete this topic MENINGOCOCCAL GROUPS A/C/Y/W VACCINE Aged Out No longer eligible b ased on patient's age to complete this topic Care Teams Human Services Professional Relationship Specialty Start Date End Date Ezekiel Begum MD [address] [place] [phone] PCP - General Internal Medicine 08/26/23 [place] Torrez APRN-GASOLINE DRAGLINE OPERATOR [address] [facility] [address] [place] [address] Nurse Practitioner 08/26/23
== END 2024-08-02 07:46 | disposition home or self-care (01) ==
LOC: CHSIMG 07:46
PROVIDERS: PCP Internal Medicine; Visit Provider Internal Medicine
DX: K50.90 Crohn's disease, unspecified, without complications (principal)
CPT/HCPCS: 99199

== ENCOUNTER 2024-08-03 07:23 | Outpatient (CLI) | payer MEDICARE, SELFPAY ==
--- NOTE | ~2024-08-03 | CT_ITS ---
EXAMINATION: CT abdomen pelvis w con DATE: 08/03/2024 08:15 INDICATION: Crohn's disease. Colitis. TECHNIQUE: Computed tomography (CT) of the abdomen and pelvis was performed with 100 mL Omnipaque 350 intravenous contrast. Automated exposure control and iterative reconstruction technique were employe d. The dose-length product was 334.87 mGy-cm. COMPARISON: CT abdomen and pelvis 06/06/2022 FINDINGS: The visualized portions of the lung bases demonstrate mild atelectasis. No pleural effusion . Cardiomegaly is noted. No pericardial effusion. There is a small sliding hiatal hernia. There is mi ld intrahepatic biliary duct dilatation. The common duct is dilated to 13 mm. There are changes of ch olecystectomy. The spleen, pancreas, and adrenal glands are normal. There is cortical thinning of the kidneys. There is diverticulosis of the colon without evidence of diverticulitis. There are no dilat ed loops of bowel. The terminal ileum is normal. The appendix is normal. There are no pathologically enlarged lymph nodes. There is no free intraperitoneal fluid. There is moderate thoracic spondylosis and mild lumbar spondylosis. There is a chronic compression fracture of L2. IMPRESSION: 1. Small sliding hiatal hernia. 2. Worsened mild intrahepatic and extrahepatic biliary duct dilatation status post cholecystectomy. G iven the recent normal liver function tests, this finding may not be clinically significant. Reviewed, dictated and finalized at location A. IMPRESSION: 1. Small sliding hiatal hernia. 2. Worsened mild intrahepatic and extrahepatic biliary duct dilatation status p ost cholecystectomy. Given the recent normal liver function tests, this finding may not be clinically significant.
--- OUTSIDE RECORDS SUMMARY | 2024-08-03 07:30 | XMS_ITS | Clinical Summary ---
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
--- OUTSIDE RECORDS SUMMARY | 2024-08-03 07:30 | XMS_ITS | Referral Summary ---
Author Organization [facility] Address [address] [place] [phone] Care Team Providers Care Supervisor Wet Pour Name Role Phone Unknown, Notinfile Primary Care [...] on file Legal Sex Female 12:30 AM TRIMMER SORTER Gender Identity Not on file Sexual Orientation Straight 07/15/2020 3: 54 PM TRIMMER SORTER Occupation Industry Job Start Date Job End [...] Plan of Treatment Not on file Insurance [facility] MEDICARE UHC MEDICARE ADVANTAGE Care Teams Supervisor Wet Pour Relationship Specialty Start Date End Date Unknown, Notinfile PCP - General 12/09/17
--- OUTSIDE RECORDS SUMMARY | 2024-08-03 07:31 | XMS_ITS | Clinical Summary ---
Author Organization [facility] Address [facility] [place] [address] Care Team Providers Care Offset Printing Operator Name Role Phone Unavailable Primary Care Provider [...] to complete this topic Insurance MED REPLACE [facility] MEDICARE
--- OUTSIDE RECORDS SUMMARY | 2024-08-03 07:31 | XMS_ITS | Clinical Summary ---
Author Organization [facility] Address [address] [facility] [place] [address] Care Team Providers Care Inset Cutter Name Role Phone Ezekiel Begum MD Primary Care Provider [phone] [place] Torrez APRN-NON FERROUS MATERIAL HANDLER Unavailable [phone] Source Comments [facility],non-owned Affiliates and Associated Physician Practices is amultiple site organization consisting of ambulatory clinics and hospital sitesin [place], [place], [place] and [place]. This disclosure is being madepursuant to the Care Everywhere program and may not contain all information available regarding this patient. Last updated 18.[facility] [employer] Allergies Active Allergy Reactions Criticality Noted Date [...] Visit [facility] Op[facility]mology [address] [place] [phone] Sherrie Pinto MD [address] [place] [address] [place] [address] Health Maintenance Due Date Last [...] age to complete this topic Care Teams Inset Cutter Relationship Specialty Start Date End Date Ezekiel Begum MD [address] [place] [phone] PCP - General Internal Medicine 08/26/23 [place] Torrez APRN-NON FERROUS MATERIAL HANDLER [address] [facility] [address] [place] [address] Nurse Practitioner 08/26/23
== END 2024-08-03 07:24 | disposition home or self-care (01) ==
LOC: CHSIMG 07:25
PROVIDERS: PCP Internal Medicine; Visit Provider Internal Medicine
DX: K50.90 Crohn's disease, unspecified, without complications (principal); K44.9 Diaphragmatic hernia without obstruction or gangrene; Z90.49 Acquired absence of other specified parts of digestive tract
CPT/HCPCS: 74177; Q9967

== ENCOUNTER 2024-11-07 09:41 | Outpatient (CLI) | payer MEDICARE, SELFPAY ==
[2024-11-07 09:56] LABS: Basophils Absolute Auto 0.05 K/mm3 (0.00-0.10); Basophils Percent Auto 0.4 % (0.0-1.0); Eosinophils Absolute Auto 0.12 K/mm3 (0.02-0.50); Hematocrit 40.5 % (35.0-42.0); Hemoglobin 13.3 g/dL (11.7-13.8); Immature Granulocyte Absolute 0.04 K/mm3 (0.00-0.00); Immature Granulocyte Percent A 0.3 % (0.0-0.0); Lymphocytes Absolute Auto 3.01 K/mm3 (1.10-4.50); Lymphocytes Percent Auto 24.7 % (18.0-42.0); Mean Corpuscular HGB Conc 32.8 g/dL (32-36); Mean Corpuscular Hemoglobin 31.9 pg (27.0-31.0); Mean Corpuscular Volume 97.1 fL (78.0-102.0); Mean Platelet Volume 9.2 fl (9.2-11.8); Monocytes Absolute Auto 1.07 K/mm3 (0.10-0.90); Monocytes Percent Auto 8.8 % (2.0-11.0); Neutrophils Absolute Auto 7.91 K/mm3 (1.70-7.20); Neutrophils Percent Auto 64.8 % (50.0-70.0); Platelet Count Result 244 K/mm3 (150-420); Red Blood Count 4.17 M/mm3 (4.20-5.40); Red Cell Distribution Width 13.3 % (11.6-14.4); White Blood Count 12.2 K/mm3 (4.8-10.8)
[2024-11-07 10:15] LABS: Albumin Level 4.2 g/dL (3.5-5.1); Alkaline Phosphatase 42 U/L (38-126); Anion Gap 5 mmol/L (4-12); Aspartate Amino Transferase 24 U/L (14-36); Bilirubin,Total 0.8 mg/dL (0.2-1.3); Blood Urea Nitrogen 30 mg/dL (7-17); Calcium 9.3 mg/dL (8.4-10.2); Carbon Dioxide 29 mmol/L (22-30); Chloride 104 mmol/L (98-107); Estimated Glomerular Filt Rate 48; Glucose 86 mg/dL (65-110); Osmolality Calculated 291 mOsm/kg (285-295); Potassium 3.9 mmol/L (3.4-5.0); Sodium 138 mmol/L (137-145); Total Protein 7.3 g/dL (6.3-8.2)
[2024-11-07 10:16] LABS: Alanine Aminotransferase 28 U/L (6-35)
== END 2024-11-07 09:42 | disposition home or self-care (01) ==
PROVIDERS: PCP Internal Medicine; Visit Provider Nurse Practitioner Family
DX: R31.0 Gross hematuria (principal)
CPT/HCPCS: 36415; 80053; 85025

== ENCOUNTER 2024-11-08 08:00 | Outpatient (CLI) | payer MEDICARE, SELFPAY ==
--- NOTE | ~2024-11-08 | CT_ITS ---
EXAMINATION: CT abdomen pelvis wo/w con DATE: 11/08/2024 09:09 INDICATION: Hematuria TECHNIQUE: Computed tomography (CT) of the abdomen and pelvis was performed without intravenous contr ast. CT of the abdomen and pelvis was then performed with a total of 130 mL Omnipaque-350 intravenous contrast using a double-bolus technique for simultaneous opacification of the renal parenchyma and r enal collecting system. Automated exposure control and iterative reconstruction technique were employ ed. The dose-length product was 1306.77 mGy-cm. COMPARISON: 08/03/2024 FINDINGS: Mild atelectasis at the lingula and dependent lower lobes. Heart size is normal. No pericardial or pl eural effusion. Small sliding-type hiatal hernia. Cholecystectomy clips the gallbladder fossa. Liver, spleen, pancreas and bilateral adrenal glands are normal. 3 mm nonobstructing stone at the upper melecio e the left kidney. Kidneys otherwise normal with symmetric renal parenchymal enhancement and no hydro nephrosis. There is contrast opacification of the bilateral renal collecting systems and entirety of the bilateral ureters with no filling defects or urothelial irregularities. Bladder is normal. There is pelvic floor relaxation. The uterus is not identified and has likely been surgically resected. The re is mild colonic diverticulosis with a sigmoid predominance. There is no adjacent inflammatory kori nge to suggest diverticulitis. Small bowel and appendix are normal. No free intraperitoneal gas or f luid. No pathologically enlarged abdominal or pelvic lymphadenopathy. Moderate thoracic and mild lumb ar spondylosis with chronic superior endplate compression fracture at L2. Moderate left and mild righ t hip osteoarthritis. IMPRESSION: 1. 3 mm nonobstructing left renal stone. 2. Small sliding-type hiatal hernia. Reviewed, dictated and finalized at location B.
--- OUTSIDE RECORDS SUMMARY | 2024-11-08 08:04 | XMS_ITS | Referral Summary ---
Author Organization [facility] Address [address] [place] [phone] Care Team Providers Care Store Product Demonstrator Name Role Phone Unknown, Notinfile Primary Care [...] on file Legal Sex Female 12:30 AM OUT PATIENT THERAPIST Gender Identity Not on file Sexual Orientation Straight 07/15/2020 3: 54 PM OUT PATIENT THERAPIST Occupation Industry Job Start Date Job End [...] A M CDT Height 154.9 cm (5' 1) 07/18/2019 9:15 AM CDT Body Mass Index 27.66 07/18/2019 9:15 AM CDT Plan of Treatment Not on file Insurance [facility] MEDICARE UHC MEDICARE ADVANTAGE Care Teams Store Product Demonstrator Relationship Specialty Start Date End Date Unknown, Notinfile PCP - General 12/09/17
--- OUTSIDE RECORDS SUMMARY | 2024-11-08 08:04 | XMS_ITS | Clinical Summary ---
Author Organization [facility] Address [facility] [place] [address] Care Team Providers Care Burn Out Scarfing Operator Name Role Phone Unavailable Primary Care [...] 1 - Tdap) 07/23/1970 Mammogram Screening 1991 Pneumococcal Vaccine: 50+ Ye ars (1 of 1 - PCV) 07/23/2001 Zoster Vaccines (1 of 2) 07/23/2001 Annual Medicare Wellness Visit 07/23/2016 Dexa Scan (General) 07/23/2016 COVID-19 Vaccine ( - 2023-2 5 season) 2024 RSV Immunization or 60+ Years (1 [...] to complete this topic Insurance MED REPLACE [facility] MEDICARE
--- OUTSIDE RECORDS SUMMARY | 2024-11-08 08:04 | XMS_ITS | Clinical Summary ---
Author Organization [facility] Address [address] [place] [phone] Care Team Providers Care Meeting Specialist Name Role Phone Unknown, Notinfile Primary Care [...] on file Legal Sex Female 12:30 AM ELECTRONICS TECHNICIAN APPRENTICE Gender Identity Not on file Sexual Orientation Straight 07/15/2020 3: 54 PM ELECTRONICS TECHNICIAN APPRENTICE Occupation Industry Job Start Date Job End [...] 07/23/1968 Well Visit 65+ 07/23/2016 Influenza Vaccine (Season Ended) 2025 DTaP/Tdap/Td Vaccine (3 - Td or Tdap) 06/24/2029, 06/09/2019 Pneumococcal vaccine 65+ Completed 10/27/2016, 12/2014 Zoster Vaccine Completed 01/28/2019, 01/09, 06/22/2018 Insurance [facility] MEDICARE UHC MEDICARE ADVANTAGE Care Teams Meeting Specialist Relationship Specialty Start Date End Date Unknown, Notinfile PCP - General 12/09/17
--- OUTSIDE RECORDS SUMMARY | 2024-11-08 08:05 | XMS_ITS | Clinical Summary ---
Author Organization [facility] Address [address] [facility] [place] [address] Care Team Providers Care Interface Designer Name Role Phone Ezekiel Begum MD Primary Care Provider [phone] [place] Torrez APRN-PRECISION AIRCRAFT STRUCTURE ASSEMBLER Unavailable [phone] [facility],non-owned Affiliates and Associated Physician Practices is amultiple site organization consisting of ambulatory clinics and hospital sitesin [place], [place], [place] and [place]. This disclosure is being madepursuant to the Care Everywhere program and may not contain all information available regarding this patient. Last updated 18.[facility] Allergies Active Allergy Reactions Criticality Noted Date Comments Contrast-Iodinated Agents For Ct/Other Unknown 08/26/2023 Meperidine Headache 08/26/2023 Medications * Be aware that medications may not be up to date on this document. Alwaysverify current medications with the patient. 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 04/03/2022 Proptosis 04/03/2022 Diplopia 01/23/2022 Esotropia 01/23/2022 Meningioma, cerebral 01/23/2022 Encounters Date Type Department Care Team Description 10/10/2024 Travel 08/24/2024 10:45 AM CDT [facility] [address] [place] [phone] Sherrie Pinto MD Thyroid eye disease (Primary Dx) 08/24/2024 Travel from Last 3 Months Social History Tobacco Use Types Packs/Day Years Used Date Smoking Tobacco: Never Assessed PHQ-2 Answer Date Recorded Patient Health Questionnaire-2 Score 0 08/24/2024 Comments Unknown Sex and Gender Information Value Date Recorded Sex Assigned at Female 08/29/2023 8:42 AM CDT Legal Sex Female 2:19 PM CDT Gender Identity Female 08/29/2023 8:42 AM CDT Sexual Orientation Straight 08/29/2023 8: 42 AM CDT Plan of Treatment Upcoming Encounters Date Type Department Care Team (Late st Contact Info) Description 01/16/2025 10:00 AM CDT Office Visit [facility] - Ophthalmology [address] [place] [phone] Moshe Colbert, OD [address] [place] [phone] 08/23/2025 10:45 AM CDT Office Visit [facility] - Ophthalmology [address] [place] [phone] Sherrie Pinto MD [address] [place] [address] [place] [phone] Health Maintenance Due Date Last Done Comments [...] VACCINE (1 of 2) 07/23/2001 COVID-19 VACCINE (1 - 2023-2 5 season) 2024 MEDICARE AWV CALENDAR YEAR 2024 INFLUENZA VACCINE (Season Ended) 2025 Respiratory Syncytial Virus (RSV) Vaccine Pt: or over 60 yrs (1 - 1-dose 75+ series) 07/23/2026 DEPRESSION SCREENING Completed 08/24/2024 HEPATITIS B VACCINE Aged Out No longe [...] patient's age to complete this topic Insurance A[employer] AETNA MEDICARE ADV Care Teams Interface Designer Relationship Specialty Start Date End Date Ezekiel Begum MD [address] [place] [phone] PCP - General Internal Medicine 08/26/23 [place] Torrez APRN-PRECISION AIRCRAFT STRUCTURE ASSEMBLER [address] [facility] [address] [place] [address] Nurse Practitioner 08/26/23
== END 2024-11-08 08:01 | disposition home or self-care (01) ==
PROVIDERS: PCP Internal Medicine; Visit Provider Nurse Practitioner Family
DX: R31.0 Gross hematuria (principal); N20.0 Calculus of kidney; K44.9 Diaphragmatic hernia without obstruction or gangrene
CPT/HCPCS: 74178; Q9967

== ENCOUNTER 2025-01-23 09:00 | Outpatient (CLI) | payer MEDICARE, SELFPAY ==
[2025-01-23 09:22] LABS: Hematocrit 41.6 % (35.0-42.0); Hemoglobin 13.5 g/dL (11.7-13.8); Mean Corpuscular HGB Conc 32.5 g/dL (32-36); Mean Corpuscular Hemoglobin 31.8 pg (27.0-31.0); Mean Corpuscular Volume 98.1 fL (78.0-102.0); Platelet Count Result 250 K/mm3 (150-420); Red Blood Count 4.24 M/mm3 (4.20-5.40); White Blood Count 6.6 K/mm3 (4.8-10.8)
[2025-01-23 09:23] LABS: Add Urine Microscopic? YES; Appearance Urine Clear (Clear); Glucose Urine UA Negative (Negative); Leukocyte Esterase Ur 1+ (Negative); Nitrate Urine Negative (Negative); Specific Grav Ur 1.015 (1.010-1.020)
[2025-01-23 09:41] LABS: Hemoglobin A1C 5.6 % (<5.7)
[2025-01-23 09:44] LABS: Alanine Aminotransferase 33 U/L (6-35); Albumin Level 4.2 g/dL (3.5-5.1); Alkaline Phosphatase 50 U/L (38-126); Anion Gap 5 mmol/L (4-12); Aspartate Amino Transferase 26 U/L (14-36); Bilirubin,Total 0.9 mg/dL (0.2-1.3); Blood Urea Nitrogen 21 mg/dL (7-17); Calcium 9.6 mg/dL (8.4-10.2); Carbon Dioxide 30 mmol/L (22-30); Chloride 107 mmol/L (98-107); Cholesterol 210 mg/dL (0-200); Estimated Glomerular Filt Rate 50; Glucose 94 mg/dL (65-110); HDL Direct 72 mg/dL; Iron 115 ug/dL (37-170); Osmolality Calculated 297 mOsm/kg (285-295); Potassium 4.4 mmol/L (3.4-5.0); Sodium 142 mmol/L (137-145); Total Protein 7.5 g/dL (6.3-8.2); Triglycerides 112 mg/dL (<150)
--- OUTSIDE RECORDS SUMMARY | 2025-01-23 09:48 | XMS_ITS | Clinical Summary ---
Author Organization [facility] Address [address] [place] [address] Care Team Providers Care Physical Chemistry Teacher Name Role Phone Ezekiel Begum MD Primary Care Provider [phone] Lincoln Torrez APRN-INSULATION HELPER Unavailable [phone] Source Comments [facility],non-owned Affiliates and Associated Physician Practices is amultiple site organization consisting of ambulatory clinics and hospital sitesin [place], [place], [place] and [place]. This disclosure is being madepursuant to the Care Everywhere program and may not contain all information available regarding this patient. Last updated 18.[facility] Allergies Active Allergy Reactions Criticality Noted [...] Care Team (Late st Contact Info) Description 08/23/2025 10:45 AM CDT [facility] [address] [place] [phone] Sherrie Pinto MD [address] [place] [address] [place] [address] Health Maintenance Due Date Last [...] 07/23/2001 ZOSTER VACCINE (1 of 2) 07/23/2001 MEDICARE AWV CALENDAR YEAR 2024 COVID-19 VACCINE (1 - 2023-2 5 season) 2025 INFLUENZA VACCINE (#1) 2025 Respiratory Syncytial Virus (RSV) Vaccine Pt: [...] patient's age to complete this topic Insurance T AETNA MEDICARE ADV Care Teams Physical Chemistry Teacher Relationship Specialty Start Date End Date Ezekiel Begum MD [address] [place] [address] PCP - General Internal Medicine 08/26/23 Lincoln Torrez APRN-INSULATION HELPER [phone] [facility] [address] [place] [address] Nurse Practitioner 08/26/23
--- OUTSIDE RECORDS SUMMARY | 2025-01-23 09:48 | XMS_ITS | Clinical Summary ---
Author Organization [facility] Address [address] [place] [id number] Care Team Providers Care Confectionery Cooker Name Role Phone Unknown, Notinfile Primary Care [...] 019 Surgical History Surgery Date Site/Laterality Comments [place] CHOLECYSTECTOMY Cholecystectomy - (Added by TW Conv) [place] TOTAL ABDOMINAL HYSTERECT W/WO RMVL TUBE OVARY [...] on file Legal Sex Female 12:30 AM WOODYARD OPERATOR Gender Identity Not on file Sexual Orientation Straight 07/15/2020 3: 54 PM WOODYARD OPERATOR Occupation Industry Job Start Date Job End [...] Well Visit 65+ 07/23/2016 Influenza Vaccine (#1) 2025 DTaP/Tdap/Td Vaccine (3 - Td or Tdap) 06/24/2029, 06/09/2019 Pneumococcal vaccine 65+ Completed 10/27/2016, 12/2014 Zoster Vaccine Completed 01/28/2019, 01/09, 06/22/2018 Insurance [facility] MEDICARE UHC MEDICARE ADVANTAGE [facility] MEDIC[facility] Address: [address] [address] [place] [address] Care Teams Confectionery Cooker Relationship Specialty Start Date End Date Unknown, Notinfile PCP - General 12/09/17
[2025-01-23 09:55] LABS: Free T4 Free Thyroxine 1.38 ng/dL (0.78-2.19)
[2025-01-23 10:11] LABS: Thyroid Stimulating Hormone 1.320 uIU/mL (0.465-4.680)
[2025-01-23 10:13] LABS: Ferritin 45.80 ng/mL (11.1-264)
[2025-01-26 14:08] LABS: Saccharomyces cerevisiae, IgA <20.0 Units (0.0-24.9); Saccharomyces cerevisiae, IgG <20.0 Units (0.0-24.9)
== END 2025-01-23 09:01 | disposition home or self-care (01) ==
LOC: CHSLAB 09:04
PROVIDERS: PCP Internal Medicine; Visit Provider Internal Medicine
DX: K50.90 Crohn's disease, unspecified, without complications (principal); I10 Essential (primary) hypertension; R73.01 Impaired fasting glucose; E03.4 Atrophy of thyroid (acquired); N39.0 Urinary tract infection, site not specified; R53.82 Chronic fatigue, unspecified
CPT/HCPCS: 36415; 80053; 80061; 81001; 82728; 83036; 83540; 84439; 84443; 85027; 85652; 86037; 86671

== ENCOUNTER 2025-01-27 08:13 | Outpatient (CLI) | payer MEDICARE, SELFPAY ==
--- NOTE | ~2025-01-27 | MM_ITS ---
EXAMINATION: MM screening geovani BI w [facility] HISTORY: Screening TECHNIQUE: Craniocaudal and mediolateral oblique 3-D tomosynthesis images were obtained and synthetic 2-D images were generated. CAD analysis was submitted and interpreted. COMPARISON: Comparison to multiple prior studies sequentially, with oldest reviewed study dated , 11/04/2019 BREAST PARENCHYMAL COMPOSITION: There are scattered areas of fibroglandular density. FINDINGS: There is no evidence of suspicious mass, calcification, or architectural distortion to suggest malignancy in either breast. IMPRESSION: 1. No mammographic evidence of malignancy. 2. Recommend routine screening mammography in one year. BI-RADS Category 1: Negative Reviewed, dictated and finalized at location B.
--- OUTSIDE RECORDS SUMMARY | 2025-01-27 08:15 | XMS_ITS | Clinical Summary ---
Author Organization [facility] Address [address] [facility] [place] [address] Care Team Providers Care Senior Net Developer Name Role Phone Ezekiel Begum MD Primary Care Provider [phone] Lincoln Torrez APRN-ORTHOPEDIC DESIGNER Unavailable [phone] Source Comments [facility],non-owned Affiliates and Associated Physician Practices is amultiple site organization consisting of ambulatory clinics and hospital sitesin [place], [place], [place] and [place]. This disclosure is being madepursuant to the Care Everywhere program and may not contain all information available regarding this patient. Last updated 18.[facility] Allergies Active Allergy Reactions Criticality [...] Description 08/23/2025 10:45 AM CDT [facility] [address] [place] [phone] Sherrie Pinto MD [address] [place] [address] [place] [address] Health Maintenance Due Date Last [...] Insurance T AETNA MEDICARE ADV Care Teams Senior Net Developer Relationship Specialty Start Date End Date Ezekiel Begum MD [address] [place] [address] PCP - General Internal Medicine 08/26/23 Lincoln Torrez APRN-ORTHOPEDIC DESIGNER [id number] [facility] [address] [place] [address] Nurse Practitioner 08/26/23
--- OUTSIDE RECORDS SUMMARY | 2025-01-27 08:15 | XMS_ITS | Clinical Summary ---
Author Organization [facility] Address [facility] [place] [address] Care Team Providers Care Motel Front Desk Attendant Name Role Phone Unavailable Primary Care Provider [...] COVID-19 Vaccine ( - 2023-2 5 season) 2025 RSV Immunization or 60+ Years (1 - [...] to complete this topic Insurance MED REPLACE [facility] MEDICARE
--- OUTSIDE RECORDS SUMMARY | 2025-01-27 08:15 | XMS_ITS | Clinical Summary ---
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
== END 2025-01-27 08:14 | disposition home or self-care (01) ==
LOC: CHSIMG 08:13
PROVIDERS: PCP Internal Medicine; Visit Provider Internal Medicine
DX: Z12.31 Encounter for screening mammogram for malignant neoplasm of breast (principal)
CPT/HCPCS: 77063; 77067

== ENCOUNTER 2025-03-07 08:13 | Outpatient (CLI) | payer MEDICARE, SELFPAY ==
--- OUTSIDE RECORDS SUMMARY | 2025-03-07 08:23 | XMS_ITS | Clinical Summary ---
Author Organization [facility] Address [address] [place] [address] Care Team Providers Care Security Control Center Operator Name Role Phone Unavailable Primary Care [...] Scan (General) 07/23/2016 COVID-19 Vaccine ( - 2024-2 6 season) 2025 Influenza Adult (#1) 2025 RSV Immunization or 60+ Years (1 - 1-dose 75+ series) 07/23/2026 Hepatitis A Vaccines Aged Out No long er eligible based on patient's age to complete this topic Meningococcal B Vaccine Aged Out No l onger eligible based on patient's age to complete this topic Meningococcal Vaccine Aged Out No ester monie eligible based on patient's age to complete this topic RSV Immunizations Under 20 Months Aged Out No longer eligible based on patient's age to complete this topic Insurance MED REPLACE [employer] MEDICARE
--- OUTSIDE RECORDS SUMMARY | 2025-03-07 08:23 | XMS_ITS | Clinical Summary ---
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
--- OUTSIDE RECORDS SUMMARY | 2025-03-07 08:23 | XMS_ITS | Clinical Summary ---
Author Organization [facility] Address [address] [place] [address] Care Team Providers Care Taxation Economist Name Role Phone Ezekiel Begum MD Primary Care Provider [phone] Lincoln Torrez APRN-CONSOLIDATION ACCOUNTANT Unavailable Source Comments [facility],non-owned Affiliates and Associated Physician Practices is amultiple site organization consisting of ambulatory clinics and hospital sitesin [place], [place], [place] and [place]. This disclosure is being madepursuant to the Care Everywhere program and may not contain all information available regarding this patient. Last updated 18.[facility] Allergies Active Allergy Reactions Criticality Noted Date [...] Description 08/23/2025 10:45 AM CDT [facility] [address] [place] [phone] Sherrie Pinto MD [address] [place] [address] [place] [address] Health Maintenance Due Date Last [...] Insurance T AETNA MEDICARE ADV Care Teams Taxation Economist Relationship Specialty Start Date End Date Ezekiel Begum MD [address] [place] [address] PCP - General Internal Medicine 08/26/23 Lincoln Torrez APRN-CONSOLIDATION ACCOUNTANT [address] [facility] [address] [place] [address] Nurse Practitioner 08/26/23
[2025-03-07 08:25] LABS: Add Urine Microscopic? YES; Appearance Urine Clear (Clear); Glucose Urine UA Negative (Negative); Leukocyte Esterase Ur 1+ (Negative); Nitrate Urine Negative (Negative); Specific Grav Ur 1.020 (1.010-1.020)
[2025-03-07 08:51] LABS: Anion Gap 6 mmol/L (4-12); Blood Urea Nitrogen 27 mg/dL (7-17); Calcium 9.3 mg/dL (8.4-10.2); Carbon Dioxide 29 mmol/L (22-30); Chloride 107 mmol/L (98-107); Estimated Glomerular Filt Rate 51; Glucose 85 mg/dL (65-110); Osmolality Calculated 298 mOsm/kg (285-295); Potassium 4.1 mmol/L (3.4-5.0); Sodium 142 mmol/L (137-145)
== END 2025-03-07 08:14 | disposition home or self-care (01) ==
LOC: CHSLAB 08:14
PROVIDERS: PCP Internal Medicine; Visit Provider Internal Medicine
DX: I10 Essential (primary) hypertension (principal); N39.0 Urinary tract infection, site not specified
CPT/HCPCS: 36415; 80048; 81001; 87086